=== PATIENT | male | born 1960 | race Caucasian/White ===

== ENCOUNTER → 2022-08-30 14:57 | Outpatient (BNVA) | payer OTHER, SELFPAY | PROVIDERS: PCP Internal Medicine; Visit Provider Hospitalist | DX: R06.02 Shortness of breath (principal); J38.3 Other diseases of vocal cords; R91.8 Other nonspecific abnormal finding of lung field; G47.33 Obstructive sleep apnea (adult) (pediatric); Z99.89 Dependence on other enabling machines and devices | CPT/HCPCS: 99202 ==

== ENCOUNTER 2022-09-12 08:58 | Outpatient (REF) | payer OTHER, SELFPAY ==
--- NOTE | 2022-09-12 12:00 | PFT_ITS ---
Forced vital capacity 77%, FEV1 71%, FEV1/FVC ratio is 69. FEF 25-75 56% and MVV 77%. Post bronchodilator therapy, there is a slight improvement in FEF 25-75. Total lung capacity 84% and residual volume 102%. Diffusion capacity 74%. CONCLUSION: There is evidence of mild degree of obstructive airway disorder and a minimal response to bronchodilator therapy. Clinical correlation is recommended. MD THOMAS Ewing/ORTEGA / [id number]
== END 2022-09-12 08:59 | disposition home or self-care (01) ==
LOC: HO.RESP 08:58
PROVIDERS: PCP Internal Medicine; Visit Provider Hospitalist
DX: R06.02 Shortness of breath (principal)
CPT/HCPCS: 94060; 94727; 94729

== ENCOUNTER → 2022-10-17 10:08 | Outpatient (BNVA) | payer OTHER, SELFPAY | PROVIDERS: PCP Internal Medicine; Visit Provider Hospitalist | DX: J44.9 Chronic obstructive pulmonary disease, unspecified (principal); J38.3 Other diseases of vocal cords; R91.8 Other nonspecific abnormal finding of lung field; R06.02 Shortness of breath; G47.33 Obstructive sleep apnea (adult) (pediatric); Z99.89 Dependence on other enabling machines and devices | CPT/HCPCS: 99212 ==

== ENCOUNTER → 2023-02-08 08:27 | Outpatient (BNVA) | payer MEDICARE, OTHER, SELFPAY | PROVIDERS: Visit Provider Hospitalist | DX: J44.9 Chronic obstructive pulmonary disease, unspecified (principal); R91.8 Other nonspecific abnormal finding of lung field; R06.02 Shortness of breath; J38.3 Other diseases of vocal cords; G47.33 Obstructive sleep apnea (adult) (pediatric); Z99.89 Dependence on other enabling machines and devices | CPT/HCPCS: 99212 ==

== ENCOUNTER 2023-07-17 08:46 | Outpatient (AMB) | payer MEDICARE, OTHER, SELFPAY ==
[2023-07-17 08:58] VITALS: BP 118/60; PULSE 77; O2SAT 96; BMI 22.5
--- NOTE | 2023-07-17 08:58 | MHC.OFFVIS ---
Intake Vital Signs 07/17/23 08:58 Height 6 ft 2 in Weight 175 lb BMI 22.5 BP 118/60 Blood Pressure Location Lt brachial Position Sitting Pulse 77 Pulse Source Pulse Oximeter Pulse Oximetry (%) 96 Oxygen Delivery Method Room Air Intake Visit Reasons: COPD Flue Blower Required: No Allergies moxifloxacin Allergy (Severe, Verified 07/17/23 09:00) Rash HPI HPI Comments History of Present Illness Details The patient is a 63-year-old gentleman with a known history of vocal cord dysfunction and asymmetry followed closely by ENT who apparently was having issues with shortness of breath back in 2018 where he underwent a soft tissue neck CT scan and also CT scan of the chest demonstrating multiple pulmonary nodules subcentimeter in nature largest 1 measuring about 4 mm in size. Subsequently after that in 2019 the patient started having worsening shortness of breath symptoms. This shortness of breath mainly when taking a deep breath in and will be intermittent in nature. He has never used inhalers. Because of the symptoms he had a full cardiac evaluation which was reassuring. More recently the patient was sleeping while using his CPAP and he woke up and could not breathe. Denies any chest pains. The symptoms were concerning enough for him to go to his primary care doctor to further discuss the issues. Therefore the patient was sent for repeat CT scan of the chest which was done at [facility]. I personally reviewed the CT scan of the chest that he had back in 2018 at [facility] demonstrating about 4 pulmonary nodules. The largest 1 4 mm in size. I did then compared to the report that we received from [facility] in appears that he has a new pulmonary nodule in the minor fissure on the right side. Therefore based on that the patient will need a repeat CT scan in June 2023. The pulmonary nodules appear to be noncalcified and appeared to be smooth borders well-circumscribed. No he stop subsolid component noted. In addition to that on the CT scan of the chest from 2019 the patient did have bilateral renal cysts. These renal cysts were not mention on the CT scan from [facility] although is difficult to know of that cuts were not low enough to tap sure that kidneys. If the patient has not had any imaging studies such as ultrasound to further address the renal cyst that should be completed. In the meantime the patient has been following closely with GI. Recently underwent a Wilson study. He has a small hiatal hernia. He is trying to maintain her reflux diet and also I encouraged him to try to sleep elevated as well. The speech therapist given similar recommendations. I do not believe that a short-acting beta agonist as warranted at this time. However, I did provide him with a peak flow meter so he can monitor closely his airway resistance. If the resistance goes down the patient should indeed consider a short-acting beta agonist. Will have him undergo pulmonary function studies as well. I also walking him to bring his CPAP in to the next visit to make sure that is adequately being treated his sleep apnea but not over treating when he is getting distention in the stomach and or irritating his larynx. 10/17/2022 the patient is here for a pulmonary follow-up visit. Since we last spoke he started developing a little laryngitis and then a productive cough. He was expectorating green phlegm although it is clearing up now. However, his cough has persisted. Feels some chest tightness in the middle the chest area. Moderate severity. He did undergo his pulmonary function studies prior to getting sick. We did review the results. It appears that he has a moderate degree of obstruction consistent moderate COPD. The patient is non smoker lifelong. Therefore is not clear why he has such as significant obstruction. He may have some untreated asthma. The patient has used rescue inhalers in the past. Although this point given Symbicort that he can use twice a day. He should rinse his mouth after using it. I am hopeful that with Symbicort his chest tightness has will improve and I am hopeful that with the budesonide component of the Symbicort she will start having improved event in his airways. He has some degree of small airways disease also consistent with likely uncontrolled asthma. He has had allergy testing in the past demonstrating minimal allergies to the environment but does not remember anything drastic. He also brought his CPAP with him. Currently set about CPAP of 6 without a ramp. AHI 0.9 which is excellent. He is using a nasal pillow mask and is working just fine. In regards of his pulmonary nodules his next CT scan will be for June 2023. He did have a CT scan at [facility] in he does have the CD although he does not have a with him. 02/08/2023 the patient is here for pulmonary follow-up visit. Since we last spoke the patient could not get the Symbicort so therefore he ended up getting Advair HFA. He did initially see any significant improvement with the medication. Also he also had an area in the mouth where he was unsure shows thrush. He also developed muscle spasms and cramps. He start the medication. After stopping he noticed that he was helping some. Although hard to know if his enough to warrant the use of the medication. He has been checking his peak flows. I did provide him with a spacer in order to minimize irritation to his mouth in case he needs to go back on the Advair. I also had a sample inhaler with levo albuterol that he could use as needed if he notices the onset of the chest tightness and shortness of breath. He will be checking his peak flows twice a day and also as needed. At nighttime he is using the CPAP. CPAP therapy continues to be affecting beneficial. He does use it for more than 4 hours a night. He is going to look to potentially switching his nasal pillows to a cradle. He will talk to a SMS regarding that. Finally. His last CT scan was back in June 2022 demonstrating a new nodule on the right hemithorax. The patient will get a repeat CT scan done June 2023 in 3. The patient prefers [facility]. 07/17/2023 the patient is here for pulmonary follow-up visit. The patient overall has been doing well. He has not had to use it Advair. A as a short-acting beta agonist study is not required either. Overall he is doing well from a respiratory status. He did have COVID when here COVID his peak flow did drop down to the highs 300. But, his typical peak flow is around 410-450. This is pretty consistent for him. The patient also has been using CPAP. His AHI continues to be below 5 which is reassuring. He does wear nasal pillows and he does have an air leak. He does try needs a chinstrap. I will request 1 from the [employer]. He does use occasional. Also we did follow-up with a CT scan of the chest that he had to follow-up is nodules. They have been stable now for about 4 years which is very reassuring. Upon evaluation in review of the images I did run into a small polypoid lesion on the esophagus. This is maybe a whole then had a CT scan itself. But he does have a GI doctor needs had a barium swallowing a pH probe I do believe that endoscopy may be helpful as well. Therefore I will send a copy to his GI doctor. Otherwise patient is doing well will follow-up in a year's time with pulmonary function studies. COUNTS INCLUDE 234 BEDS AT THE [facility] Medical History (Updated 07/17/23 @ 21:37 by Rubio Alexander MD) COPD (chronic obstructive pulmonary disease) FRANCISCO on CPAP Pulmonary nodules Vocal cord dysfunction Dyspnea Social History (Updated 08/30/22 @ 15:06 by Sydney Chou Olya) Patient Tobacco Use Status: Never used Tobacco Review of Systems Const Denies fatigue, Denies fever(s) and Denies night sweats Eyes Denies change in vision ENT Denies change in voice Card Denies chest pain and Denies dyspnea on exertion Resp Denies chest congestion, Reports cough, Denies dyspnea on exertion and Denies wheezing GI Reports dyspepsia Musc Reports no additional complaints Skin/Breast Denies rash Neuro Reports no additional complaints Endo Denies fatigue and Denies flushing Eloy/Lymph Denies easy bleeding and Denies easy bruising Aller/Immun Denies wheezing Physical Exam Vital Signs: Last Vital Signs Pulse 77 07/17/23 08:58 BP 118/60 07/17/23 08:58 Pulse Ox 96 07/17/23 08:58 Oxygen Delivery Method Room Air 07/17/23 08:58 BMI result Body Mass Index 22.5 Const General: comfortable HEENT Head: Yes normocephalic Eyes General: appearance normal, both eyes and all related structures Neck Neck: Yes supple Chest Chest palpation & inspection: normal inspection of the chest Resp Effort & Inspection: normal respiratory effort Auscultation: clear to auscultation bilaterally Cardio Rate: regular rate Rhythm: regular rhythm Heart sounds: S1 normal heart sound present and S2 normal heart sound present GI Auscultation: normal bowel sounds Skin General skin exam: no rashes or lesions noted Extrem General: Yes no clubbing, cyanosis or edema Results Reviewed Results Reviewed: Assessment & Plan Assessment & Plan (1) COPD (chronic obstructive pulmonary disease): Comment: Moderate obstruction based on PFTs Code(s): J44.9 - Chronic obstructive pulmonary disease, unspecified Qualifiers: COPD type: chronic bronchitis Chronic bronchitis type: simple Qualified Code(s): J41.0 - Simple chronic bronchitis (2) Dyspnea: Code(s): R06.00 - Dyspnea, unspecified Qualifiers: Dyspnea type: shortness of breath Qualified Code(s): R06.02 - Shortness of breath (3) Vocal cord dysfunction: Comment: asymmetrical vocal cords, speech therapy Code(s): J38.3 - Other diseases of vocal cords (4) Pulmonary nodules: Code(s): R91.8 - Other nonspecific abnormal finding of lung field (5) FRANCISCO on CPAP: Code(s): G47.33 - Obstructive sleep apnea (adult) (pediatric); Z99.89 - Dependence on other enabling machines and devices (6) Esophageal polyp: Code(s): K22.81 - Esophageal polyp Plan holding Advair HFA, will use 1 puff BID with spacer if needed EKRMIT as needed reflux diet HOB elevated while sleeping F/U with GI Re: small mid esophagus polypoid lesion monitor peak flows Repeat PFTs in 1 year continue PAP CPAP 6, AHI 0.9, needs chin strap F/U 1 year Orders: Orders PFT pulmonary function test 364 Days J41.0 - Simple chronic bronchitis Coding Level of Care Code Est Pt Level 4 (62745) Diagnoses Simple chronic bronchitis J41.0 COPD type: chronic bronchitis Chronic bronchitis type: simple Shortness of breath R06.02 Dyspnea type: shortness of breath Vocal cord dysfunction J38.3 Pulmonary nodules R91.8 FRANCISCO on CPAP G47.33; Z99.89 Esophageal polyp K22.81 Time Spent (min) 18
== END 2023-07-17 09:21 | disposition home or self-care (01) ==
PROVIDERS: PCP Internal Medicine; Visit Provider Hospitalist
DX: J41.0 Simple chronic bronchitis (principal); R06.02 Shortness of breath; J38.3 Other diseases of vocal cords; R91.8 Other nonspecific abnormal finding of lung field; G47.33 Obstructive sleep apnea (adult) (pediatric); Z99.89 Dependence on other enabling machines and devices; K22.81 Esophageal polyp
CPT/HCPCS: 99214

== ENCOUNTER → 2023-07-17 08:46 | Outpatient (BNVA) | payer MEDICARE, OTHER, SELFPAY | PROVIDERS: PCP Internal Medicine; Visit Provider Hospitalist | DX: J41.0 Simple chronic bronchitis (principal); R06.02 Shortness of breath; J38.3 Other diseases of vocal cords; R91.8 Other nonspecific abnormal finding of lung field; G47.33 Obstructive sleep apnea (adult) (pediatric); K22.81 Esophageal polyp; Z99.89 Dependence on other enabling machines and devices | CPT/HCPCS: 99212 ==

== ENCOUNTER 2024-07-22 10:07 | Outpatient (AMB) | payer MEDICARE, OTHER, SELFPAY ==
[2024-07-22 10:08] VITALS: BP 126/60; PULSE 87; O2SAT 97
--- NOTE | 2024-07-22 10:08 | A.OFFVIS_ITS ---
Vital Signs 07/22/24 10:08 Weight 186 lb BP 126/60 Blood Pressure Location Rt brachial Position Sitting Pulse 87 Pulse Source Pulse Oximeter Pulse Oximetry (%) 97 Oxygen Delivery Method Room Air Intake Visit Reasons: copd Allergies moxifloxacin Allergy (Severe, Verified 07/22/24 10:13) Rash Medication List - Last Reconciled 07/22/24 by Annette Thompson LPN CPAP (CPAP Machine/Device) As directed ubnnutfpnrc-hrsviadfh-hyxoeroe 200-62.5-25 mcg (Trelegy Ellipta) 1 inh inhalation DAILY 90 days sildenafil 100 mg PO DAILY HPI Comments Details: The patient is a 64-year-old gentleman with a known history of vocal cord dysfunction and asymmetry followed closely by ENT who apparently was having issues with shortness of breath back in 2018 where he underwent a soft tissue neck CT scan and also CT scan of the chest demonstrating multiple pulmonary nodules subcentimeter in nature largest 1 measuring about 4 mm in size. Subsequently after that in 2019 the patient started having worsening shortness of breath symptoms. This shortness of breath mainly when taking a deep breath in and will be intermittent in nature. He has never used inhalers. Because of the symptoms he had a full cardiac evaluation which was reassuring. More recently the patient was sleeping while using his CPAP and he woke up and could not breathe. Denies any chest pains. The symptoms were concerning enough for him to go to his primary care doctor to further discuss the issues. Therefore the patient was sent for repeat CT scan of the chest which was done at [facility]. I personally reviewed the CT scan of the chest that he had back in 2018 at [facility] demonstrating about 4 pulmonary nodules. The largest 1 4 mm in size. I did then compared to the report that we received from [facility] in appears that he has a new pulmonary nodule in the minor fissure on the right side. Therefore based on that the patient will need a repeat CT scan in June 2023. The pulmonary nodules appear to be noncalcified and appeared to be smooth borders well-circumscribed. No he stop subsolid component noted. In addition to that on the CT scan of the chest from 2019 the patient did have bilateral renal cysts. These renal cysts were not mention on the CT scan from [facility] although is difficult to know of that cuts were not low enough to tap sure that kidneys. If the patient has not had any imaging studies such as ultrasound to further address the renal cyst that should be completed. In the meantime the patient has been following closely with GI. Recently underwent a Wilson study. He has a small hiatal hernia. He is trying to maintain her reflux diet and also I encouraged him to try to sleep elevated as well. The speech therapist given similar recommendations. I do not believe that a short-acting beta agonist as warranted at this time. However, I did provide him with a peak flow meter so he can monitor closely his airway resistance. If the resistance goes down the patient should indeed consider a short-acting beta agonist. Will have him undergo pulmonary function studies as well. I also walking him to bring his CPAP in to the next visit to make sure that is adequately being treated his sleep apnea but not over treating when he is getting distention in the stomach and or irritating his larynx. 10/17/2022 the patient is here for a pulmonary follow-up visit. Since we last spoke he started developing a little laryngitis and then a productive cough. He was expectorating green phlegm although it is clearing up now. However, his cough has persisted. Feels some chest tightness in the middle the chest area. Moderate severity. He did undergo his pulmonary function studies prior to getting sick. We did review the results. It appears that he has a moderate degree of obstruction consistent moderate COPD. The patient is non smoker lifelong. Therefore is not clear why he has such as significant obstruction. He may have some untreated asthma. The patient has used rescue inhalers in the past. Although this point given Symbicort that he can use twice a day. He should rinse his mouth after using it. I am hopeful that with Symbicort his chest tightness has will improve and I am hopeful that with the budesonide component of the Symbicort she will start having improved event in his airways. He has some degree of small airways disease also consistent with likely uncontrolled asthma. He has had allergy testing in the past demonstrating minimal allergies to the environment but does not remember anything drastic. He also brought his CPAP with him. Currently set about CPAP of 6 without a ramp. AHI 0.9 which is excellent. He is using a nasal pillow mask and is working just fine. In regards of his pulmonary nodules his next CT scan will be for June 2023. He did have a CT scan at [facility] in he does have the CD although he does not have a with him. 02/08/2023 the patient is here for pulmonary follow-up visit. Since we last spoke the patient could not get the Symbicort so therefore he ended up getting Advair HFA. He did initially see any significant improvement with the medication. Also he also had an area in the mouth where he was unsure shows thrush. He also developed muscle spasms and cramps. He start the medication. After stopping he noticed that he was helping some. Although hard to know if his enough to warrant the use of the medication. He has been checking his peak flows. I did provide him with a spacer in order to minimize irritation to his mouth in case he needs to go back on the Advair. I also had a sample inhaler with levo albuterol that he could use as needed if he notices the onset of the chest tightness and shortness of breath. He will be checking his peak flows twice a day and also as needed. At nighttime he is using the CPAP. CPAP therapy continues to be affecting beneficial. He does use it for more than 4 hours a night. He is going to look to potentially switching his nasal pillows to a cradle. He will talk to a SMS regarding that. Finally. His last CT scan was back in June 2022 demonstrating a new nodule on the right hemithorax. The patient will get a repeat CT scan done June 2023 in 3. The patient prefers [facility]. 07/17/2023 the patient is here for pulmonary follow-up visit. The patient overall has been doing well. He has not had to use it Advair. A as a short- acting beta agonist study is not required either. Overall he is doing well from a respiratory status. He did have COVID when here COVID his peak flow did drop down to the highs 300. But, his typical peak flow is around 410-450. This is pretty consistent for him. The patient also has been using CPAP. His AHI continues to be below 5 which is reassuring. He does wear nasal pillows and he does have an air leak. He does try needs a chinstrap. I will request 1 from the [employer]. He does use occasional. Also we did follow-up with a CT scan of the chest that he had to follow-up is nodules. They have been stable now for about 4 years which is very reassuring. Upon evaluation in review of the images I did run into a small polypoid lesion on the esophagus. This is maybe a whole then had a CT scan itself. But he does have a GI doctor needs had a barium swallowing a pH probe I do believe that endoscopy may be helpful as well. Therefore I will send a copy to his GI doctor. Otherwise patient is doing well will follow-up in a year's time with pulmonary function studies. 07/22/2024 the patient is here for a pulmonary follow-up visit. The patient overall has been doing well. The Trelegy inhaler has been affecting beneficial. He rarely has to use his rescue inhaler. Although he has 1 available in does use it less than 2 times a week. The patient did have pulmonary function studies at [facility] which I did review and compared to his previous. Appears to show improvement as he only has a mild obstruction at this time consistent with mild COPD. Prior to that he had a moderate obstruction. The patient also went to [place] to be seen by notices because of some other incidental findings. In the process he found out that his daughters carry the alpha-1 antitrypsin gene mutation. Therefore, will go ahead and request a DNIA testing for himself as he may be the carry and also alpha-1 levels to make sure that he is getting adequate protein production. The patient also has been using the CPAP. He does use a nasal mask and is resulting in a dry mouth. The chinstrap was helping for some period time but then it became loose and then in no longer works. I did suggest he switch over to a fullface mask such as the F 40. And I will send a script to the pharmacy. If this is not effective he can always call and we can go back to the nasal mask. He continues to get supplies from his [employer] company, [employer]. His machine got a back in 2019 and is still working well. [facility] Medical History (Updated 07/22/24 @ 21:21 by Rubio Alexander MD) COPD (chronic obstructive pulmonary disease) FRANCISCO on CPAP Pulmonary nodules Vocal cord dysfunction Dyspnea Social History (Updated 08/30/22 @ 15:06 by GRETCHEN Gomez) Patient Tobacco Use Status: Never used Tobacco Review of Systems Const Denies fatigue, Denies fever(s) and Denies night sweats Eyes Denies change in vision ENT Reports change in voice Card Denies chest pain and Denies dyspnea on exertion Resp Denies chest congestion, Reports cough, Denies dyspnea on exertion and Reports wheezing GI Reports dyspepsia Musc Reports no additional complaints Skin/Breast Denies rash Neuro Reports no additional complaints Endo Denies fatigue and Denies flushing Eloy/Lymph Denies easy bleeding and Denies easy bruising Aller/Immun Reports wheezing Physical Exam Vital Signs: Last Vital Signs Pulse 87 07/22/24 10:08 BP 126/60 07/22/24 10:08 Pulse Ox 97 07/22/24 10:08 Oxygen Delivery Method Room Air 07/22/24 10:08 Const General: comfortable HEENT Head: Yes normocephalic Eyes General: appearance normal, both eyes and all related structures Neck Neck: Yes supple Chest Chest palpation & inspection: normal inspection of the chest Resp Effort & Inspection: normal respiratory effort Auscultation: clear to auscultation bilaterally Cardio Rate: regular rate Rhythm: regular rhythm Heart sounds: S1 normal heart sound present and S2 normal heart sound present GI Auscultation: normal bowel sounds Skin General skin exam: no rashes or lesions noted Extrem General: Yes no clubbing, cyanosis or edema Assessment & Plan Assessment & Plan (1) COPD (chronic obstructive pulmonary disease): Comment: Moderate-->mild obstruction based on PFTs Code(s): J44.9 - Chronic obstructive pulmonary disease, unspecified Category: Medical Qualifiers: COPD type: chronic bronchitis Chronic bronchitis type: simple Qualified Code(s): J41.0 - Simple chronic bronchitis (2) Dyspnea: Code(s): R06.00 - Dyspnea, unspecified Category: Medical Qualifiers: Dyspnea type: shortness of breath Qualified Code(s): R06.02 - Shortness of breath (3) Vocal cord dysfunction: Comment: asymmetrical vocal cords, speech therapy Code(s): J38.3 - Other diseases of vocal cords Category: Medical (4) Pulmonary nodules: Code(s): R91.8 - Other nonspecific abnormal finding of lung field Category: Medical (5) FRANCISCO on CPAP: Code(s): G47.33 - Obstructive sleep apnea (adult) (pediatric); Z99.89 - Dependence on other enabling machines and devices Category: Medical (6) Esophageal polyp: Code(s): K22.81 - Esophageal polyp Category: Medical Plan Trelegy KERMIT as needed reflux diet HOB elevated while sleeping monitor peak flows Repeat PFTs in 1 year continue PAP CPAP 6, AHI 0.9, requesting F40 mask bloodwork alpha 1 DNA swab F/U 1 year Orders: Orders Liver Panel Today J41.0 - Simple chronic bronchitis Complete Blood Count Auto Diff Today J41.0 - Simple chronic bronchitis Erythrocyte Sedimentation Rate Today J41.0 - Simple chronic bronchitis Alpha 1 Anti-trypsin Today J41.0 - Simple chronic bronchitis Basic Metabolic Panel Today J41.0 - Simple chronic bronchitis Coding Level of Care Code Est Pt Level 4 (12824) Diagnoses Simple chronic bronchitis J41.0 COPD type: chronic bronchitis Chronic bronchitis type: simple Shortness of breath R06.02 Dyspnea type: shortness of breath Vocal cord dysfunction J38.3 Pulmonary nodules R91.8 FRANCISCO on CPAP G47.33; Z99.89 Esophageal polyp K22.81 Time Spent (min) 17
--- OUTSIDE RECORDS SUMMARY | 2024-07-22 10:10 | XMS_ITS | Data Portability ---
Author Organization [facility], [facility] Address [address] [place] [address] Care Team Providers Care Utility Inspector Name Role Phone ALHAJI MENDOZA Referring Provider [phone] ALHAJI MENDOZA Primary Care Provider [phone] Assessment Encounter Date Assessment Date Assessment LastModified by Organization Details LastModified Time 03/19/2024 03/19/2024 Assessment: Pt presents with signs and symptoms consistent w/ R lateral epicondylitis. 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 [email or web address] Not available 03/20/2024 20:21:30 03/25/2024 03/25/2024 A: Good josé miguel to exs with most difficulty with pron/sup. Fatigue and soreness at end of session. P: Cont POC. Not available 03/25/2024 09:11:47 04/01/2024 04/01/2024 A: Good josé miguel to strengthening progressions with mild discomfort at wrist extensor belly/origin region. P: Cont POC. Not available 04/02/2024 10:21:42 04/15/2024 04/15/2024 A: Pt able to do all exercise with minimal issue. Pt noted some discomfort with green therabar extensions and flexions so it was bumped down to red without issue. P: Cont POC. [email or web address] Not available 04/15/2024 10:20:48 Plan of Treatment Reminders Order Date Submit Date Provider Last Modified By Organization Details Last Modified Time Details Appointments None record ed. Lab None record ed. Referral None record ed. Procedures None record ed. Surgeries None record ed. Imaging None record ed. Medication Orders None record ed. Patient Targets Encounter Date Encounter Id Patient Goals Patient Target Last Modified By Organization Details Last Modified Time 03/19/2024 [id number] 3 weeks of Right Elbow Strength -[id number] Not available Not available Not available 3 weeks of Right Elbow Strength -[id number] Not available Not available Not available retirement goal of Right Elbow Strength -[id number] Not available Not available Not available retirement goal of Right Elbow Strength -[id number] Not available Not available Not available 3 weeks of Sleeping -[id number] Not available Not available Not available 3 weeks of Reaching NOTE Not available Not available Not available retirement goal of Reaching -[id number] Not available Not available Not available meterman goal of Carrying -[id number] Not available Not available Not available Patient InstructionsNo instructions recorded. Reason for Referral None Reported. Results Created Date Observation Date Name Description Value Unit Range Abnormal Flag Note LastModifiedBy Organization Detail LastModifiedTime 03/13/20 24 03/13/2024 XR, elbow , 2 view http:/ [email or web address] ?Encry pted=s hAaTro YD8dLq bEUv6g %2BXZw aYqtaq 0bqfl% 2Fg9IQ a4ajBk vP9nXo QUaueC m3YtLR FvZlgJ [facility] 0k2013 AC0Kob H2BUaH eUC8mr 84%3D INTERFACE [facility] [address], [place], [address], 03/13/2024 09:00:47 03/13/20 24 03/13/2024 XR, elbow , 2 view http:/ [email or web address] ?Encry pted=s hAaTro YD8dLq bEUv6g %2BXZw aYqtaq 0bqfl% 2Fg9IQ a4ajBk vP9nXo QUaueC m3YtLR FvZlgJ JJ8mAn HZtai3 9s2275 AC0Kob H2BUaH eUC8mr 84%3D INTERFACE [facility] [address], [place], [address], 03/13/2024 09:00:49 Result Notes None recorded. Procedures Surgical History Date Name Laterality Status Provider Name and Address Organization Details Recorded Time 4 65761 Therapeutic Exercise (1:1) completed JESSICA ROET [address], [place], [address], [facility] 04/15/2024 10:18:23 4 86395 Therapeutic Exercise (1:1) completed Phuong Orellana PTA [address], [place], [address], [facility] 04/02/2024 10:20:44 4 69169 Therapeutic Exercise (1:1) completed Phuong Orellana PTA [address], [place], [address], [facility] 03/25/2024 09:11:06 4 59995: Manual therapy completed Phuong Orellana PTA [address], [place], [address], [facility] 03/25/2024 09:11:04 4 08334 Therapeutic Exercise (1:1) completed CHRISTINA BAUM DPT [address], [place], [address], [facility] 03/20/2024 20:18:25 4 29858: Low complexity PT Eval completed CHRISTINA BAUM DPT [address], [place], [address], [facility] 03/20/2024 20:18:27 4 G8419 BMI Outside Normal Parameters, F/U not Documented completed CHRISTINA BAUM DPT [address], [place], [address], [facility] 03/20/2024 20:22:07 4 G8427 Current Medication Documented completed CHRISTINA BAUM DPT [address], [place], [address], [facility] 03/20/2024 20:22:24 Imaging Results Imaging Date Name Status LastModified by Organiz ation Details LastModified Time 03/13/2024 XR, elbow, 2 view completed INTERFACE [facility] [address], [place], [address], 03/13/2024 09:00:47 03/13/2024 XR, elbow, 2 view completed INTERFACE [facility] [address], [place], [address], 03/13/2024 09:00:49 Procedure Notes None recorded. Medical Equipment None Reported. Allergies Allergen ID Allergen Name Allergen Category Reaction Reaction Severity Criticality Documentation Date Start Date Code Code System Note Provider Name and Address Organization Details Recorded Time 470410 moxifloxa nimisha medicatio n Not available Not available Not available 03/13/2024 41446 2 RxNorm SALEEM lazo [facility] 09:15:52 Medications Name Sig Start Date Stop Date Status Note LastModified by Organization Details LastModified Time benzonatate 200 mg capsule TAKE 1 CAPSULE BY MOUTH 3 TIMES A DAY,X14 DAYS NEEDED FOR COUGH active Not Available Not Available No t Available prednisone 20 mg tablet TAKE 2 TABLETS BY MOUTH DAILY WITH FOOD OR MILK FOR 5 DAYS active Not Available Not Available No t Available sildenafil 100 mg tablet active Not Available Not Available No t Available methylpredniso lone 4 mg tablets in a dose pack TAKE 6 TABLETS ON DAY 1 DIRECTED ON PACKAGE AND DECREASE BY 1 TAB EACH DAY FOR A TOTAL OF 6 DAYS active Not Available Not Available No t Available albuterol sulfate HFA 90 mcg/actuation aerosol inhaler INHALE 2 PUFFS 4 TIMES A DAY NEEDED FOR WHEEZING active Not Available Not Available No t Available fluticasone propionate 50 mcg/actuation nasal spray,suspensi on USE 1 SPRAY IN EACH NOSTRIL TWICE A DAY active Not Available Not Available No t Available amoxicillin 875 mg-potassium clavulanate 125 mg tablet TAKE 1 TABLET BY MOUTH EVERY 12 HOURS FOR 10 DAYS active Not Available Not Available No t Available Trelegy Ellipta 200 mcg-62.5 mcg-25 mcg powder for inhalation TAKE 1 PUFF BY MOUTH EVERY DAY active Not Available Not Available No t Available Paxlovid 300 mg (150 mg x 2)-100 mg tablets in a dose pack TAKE 3 TABLETS BY MOUTH TWICE A DAY DIRECTED FOR 5 DAYS active Not Available Not Available No t Available Vitals Date Recorded Body height Body mass index (BMI) Body weight Provider Name and Address Organization Details Last Updated DateTime 04/24/2024 187.96 cm 23.1 kg/m2 76700.63 g SALEEM CHOUDHARY [place] - [place] [facility] 04/24/2024 08:27:03 Social History None recorded. Functional Status None recorded. Mental Status None recorded. Family History Nothing Reported. Medical History No medical history recorded. Past Encounters Encounter ID Performer Location Encounter Start Date Encounter Closed Date Diagnosis/Indication Diagnosis SNOMED-CT Code Diagnosis ICD10 Code [id number] Cecil Canseco MD [facility] [address]st Floor [address] [facility] [place] [address] 03/13/2024 08:40:34 04/09/2024 20:06:00 Pain of right elbow joint 3390040423 8120217 M25.521 Lateral epicondylitis 20 5728506 M77.11 [id number] MD [facility] [address] [place] [address] 03/19/2024 12:21:17 03/19/2024 13:32:30 Lateral epicondylitis of right humerus 3508327698 67057 M77.11 [id number] [facility] [address] [place] [address] 03/25/2024 08:25:37 03/25/2024 09:29:34 Lateral epicondylitis of right humerus 3400105983 17065 M77.11 [id number] [facility] [address] [place] [address] 04/01/2024 15:26:11 04/01/2024 16:08:30 Lateral epicondylitis of right humerus 5419953302 11335 M77.11 [id number] [facility] [address] [place] [address] 04/15/2024 08:55:51 04/15/2024 10:00:15 Lateral epicondylitis of right humerus 9666933672 45663 M77.11 [id number] MD Jagdish Mckinley [address] [place] [address] 04/24/2024 08:22:35 05/15/2024 11:58:05 Lateral epicondylitis of right humerus 1788138846 06674 M77.11 Health Concerns Section Related Observation LastModified by Organization Detai ls LastModified Time None Recorded Concern Status LastModified by Organization Details LastModified Time None Recorded Advance Directives Directive None Recorded Payers Encounter Date Sequence Insurance Name Policy Number Policy Finney Covered Member ID Finney Member ID Guarantor Name 03/19/2024 2 WPS - FOR LIFE (MEDICARE SUPPLEMENT) Alec Veit [id number] Alec Veit 03/19/2024 1 MEDICARE B-PR: [facility] Alec Kenton Veit [id number] Alec Veit 03/25/2024 2 WPS - FOR LIFE (MEDICARE SUPPLEMENT) Alec Veit [id number] Alec Veit 03/25/2024 1 MEDICARE B-PR: [employer] Alec Kenton Veit [id number] Alec Veit 04/01/2024 2 WPS - FOR LIFE (MEDICARE SUPPLEMENT) Alec Veit [id number] Alec Veit 04/01/2024 1 MEDICARE B-PR: [facility] [employer] Alec Kenton Veit [id number] Alec Veit 04/15/2024 2 WPS - FOR LIFE (MEDICARE SUPPLEMENT) Alec Veit [id number] Alec Veit 04/15/2024 1 MEDIC[facility] B-[facility]: [facility] [employer] Alec Kenton Veit [id number] Alec Veit 04/24/2024 2 WPS - FOR LIFE (MEDICARE SUPPLEMENT) Alec Veit [id number] Alec Veit 04/24/2024 1 MEDICARE B-PR: [facility] [employer] Alec Fung Veit [id number] Alec Veit Notes Date Note Type Note Provider Name and Address Organization Details Recorded Time 03/19/2024 text/html Pt is a 64 y/o m darwin presenting to PT w/ R lateral epicondylitis. Pt notes that he was doing yard work in December where he did a lot of shoveling. Pt notes that he started to notice pain the following day and that it has not gotten any better since. 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 Pt notes that the pain is a sharp 4-5/10 pain. CHRISTINA BAUM, DPT [address], [place], [address], [facility] 03/20/2024 20:23:04 03/25/2024 text/html Pt states he is now having shoulder and wrist pain- pre-existing, but recently flared up. Phuong Orellana, CORPORATE COUNSELOR [address], [place], [address], [facility] 03/25/2024 12:38:34 04/01/2024 text/html Pt states he now has on/off pain in the elbow, but with improvement since starting PT. Phuong Orellana, CORPORATE COUNSELOR [address], [place], [address], [facility] 04/02/2024 10:22:07 04/15/2024 text/html Pt reports that he is doing okay today. Pt says that he does have some discomfort at a 3-4/10 when reaching for his grandchild or trying to pick something up quickly. Pt notes that things like lifting a coffee cup or close to the body does not cause pain anymore. CHRISTINA BAUM, JESSICAT [address], [place], [address], [facility] 04/15/2024 10:20:58 04/24/2024 text/html Diagnosis: Right lateral epicondylitisThe patient reports that he has seen improvement in his pain. He is working on a home program now.Past family, medical, social history and review of systems has been reviewed, updated and is located in the patient? s chart.Examination: Healthy appearing patient in no apparent distress. Alert and oriented. He has symmetric range of motion of his bilateral elbows, forearms, wrists and digits. Provocative testing of both elbows reveals no instability. He is tender to palpation over his right lateral epicondyle. He has painless region with resisted wrist extension with the elbow extended. No atrophy in either upper extremity. Brisk capillary refill in all digitsPlan: The patient and I discussed his situation at length. We have agreed that he is not a candidate for corticosteroid injection therapy today. He will continue to work on his program and follow up with me at his discretion. Cecil Canseco MD [address] [place] [address] [address], [place], [address], [facility] - [place] [facility] 04/24/2024 08:40:44
--- OUTSIDE RECORDS SUMMARY | 2024-07-22 10:10 | XMS_ITS | Continuity of Care Document ---
Author Organization [facility] Address [address] [place] [address] Care Team Providers Care Sugar Controller Name Role Phone ALHAJI MENDOZA Referring Provider [phone] ALHAJI MENDOZA Primary Care Provider Assessment No assessment recorded. Plan of Treatment Reminders Order Date Submit Date Provider Last Modified By Organization Details Last Modified Time Details Appointments None record ed. Lab None record ed. Referral None record ed. Procedures None record ed. Surgeries None record ed. Imaging None record ed. Medication Orders None record ed. Patient TargetsNo targets recorded. Patient InstructionsNo instructions recorded. Reason for Referral None Reported. Procedures Surgical History Date Name Laterality Status Provider Name and Address Organization Details Recorded Time 4 15450 Therapeutic Exercise (1:1) completed CHRISTINA BAUM DPT [address] [facility], [place], [address], [facility] 04/15/2024 10:18:23 4 06383 Therapeutic Exercise (1:1) completed Phuong Orellana PTA [address], [place], [address], [facility] 04/02/2024 10:20:44 4 56393 Therapeutic Exercise (1:1) completed Phuong Orellana PTA [address], [place], [address], [facility] 03/25/2024 09:11:06 4 88472: Manual therapy completed Phuong Orellana PTA [address], [place], [address], [facility] 03/25/2024 09:11:04 4 68885 Therapeutic Exercise (1:1) completed CHRISTINA BAUM DPT [address], [place], [address], [facility] 03/20/2024 20:18:25 4 48590: Low complexity PT Eval completed CHRISTINA BAUM DPT [address], [place], [address], [facility] 03/20/2024 20:18:27 4 G8419 BMI Outside Normal Parameters, F/U not Documented completed CHRISTINA BAUM DPT [address], [place], [address], [facility] 03/20/2024 20:22:07 4 G8427 Current Medication Documented completed CHRISTINA BAUM DPT [address], [place], [address], [facility] 03/20/2024 20:22:24 Imaging Results None recorded. Procedure Notes None recorded. Medical Equipment None Reported. Allergies Allergen ID Allergen Name Allergen Category Reaction Reaction Severity Criticality Documentation Date Start Date Code Code System Note Provider Name and Address Organization Details Recorded Time 074428 moxifloxa nimisha medicatio n Not available Not available Not available 03/13/2024 64896 2 RxNorm SALEEM lazo, [facility] 4 09:15:52 Medications Name Sig Start Date Stop [...] Updated DateTime 04/24/2024 187.96 cm 23.1 kg/m2 66087.63 g [place]ALEEM CHOUDHARY [place] - [place] [facility] 04/24/2024 08:27:03 Social History None recorded. Functional Status None recorded. Mental Status None recorded. Family History Nothing Reported. Medical History No medical history recorded. Past Encounters Encounter ID Performer Location Encounter Start Date Encounter Closed Date Diagnosis/Indication Diagnosis SNOMED-CT Code Diagnosis ICD10 Code [id number] [facility] [address] [place] [address] 03/25/2024 08:25:37 03/25/2024 09:29:34 Lateral epicondylitis of right humerus 4126653430 81900 M77.11 [id number] [facility] [address] [place] [address] 04/01/2024 15:26:11 04/01/2024 16:08:30 Lateral epicondylitis of right humerus 1313247670 73511 M77.11 [id number] [facility] [address] [place] [address] 04/15/2024 08:55:51 04/15/2024 10:00:15 Lateral epicondylitis of right humerus 3275004225 77953 M77.11 [id number] MD Maria A M[facility] 1[address] [place] [address] 04/24/2024 08:22:35 05/15/2024 11:58:05 Lateral epicondylitis of right humerus 9708901811 34953 M77.11 Health Concerns Section Related Observation LastModified by Organization Detai ls LastModified Time None Recorded Concern Status LastModified by Organization Details LastModified Time None Recorded Payers Encounter Date Sequence Insurance Name Policy Number Policy Finney Covered Member ID Finney Member ID Guarantor Name 04/24/2024 2 WPS - FOR LIFE (MEDICARE SUPPLEMENT) Alec Cain [id number] Alec Preciadomoy 04/24/2024 1 [place]: [employer] Alec Cain [id number] Alec Cain Notes Date Note Type Note Provider Name and Address Organization Details Recorded Time 04/24/2024 text/html Diagnosis: Right lateral epicondylitisThe patient [...] me at his discretion. Cecil Canseco MD [address], [place], [address], [facility] - [place] [facility] 04/24/2024 08:40:44
--- OUTSIDE RECORDS SUMMARY | 2024-07-22 10:11 | XMS_ITS | Data Portability ---
Author Organization [place] [facility] Kassandra Palma A[facility] [place] Address [address] [place] [address] Care Team Providers Care Coal Miner Name Role Phone ALHAJI MENDOZA Primary Care Provider ALHAJI MENDOZA Referring Provider [phone] Assessment Encounter Date Assessment Date Assessment LastModified by Organization Details LastModified Time 12/05/2023 12/05/2023 HPI : Patient is here today with complaints of bilateral knee pain. ? ? The patient is experiencing bilateral knee pain, which is moderate in intensity, and has recently worsened. The left knee is the worse knee. The pain limits some activities of daily living. Walking tolerance is reduced. Pain and restriction of function are moderate at this time. He has not done any recent treatments for it. He does have a history of a right knee partial meniscectomy in 2001. Review of systems is negative for other rapidly progressive neurological disorder, chest pain, shortness of breath, fevers, chills, or any signs of active or persistent local or systemic infection. Physical Exam ??: Patient is well nourished, well-developed, in no acute distress, with appropriate mood and affect. The patient is oriented to time, place, and person. Bilateral knee motion is reduced and does cause significant pain. The right knee moves from 0-130 degrees and the left knee moves from 0-130 degrees. The knees are stable within those [id number] n. The alignment of the right knee is neutral. The alignment of the left knee is neutral. Knee muscle strength is normal bilaterally with the skin intact. Pedal pulses are palpable. Hip examination, including flexion and internal rotation, was negative in that groin pain was not produced. Assessment/Plan ??: The patient has bilateral knee arthritis. An extensive discussion was conducted on the natural history of the disease and the variety of surgical and non-surgical options available to the patient including, but not limited to non-steroidal anti-inflammato ry medications, steroid injections, viscosupplement ation, physical therapy, maintenance of ideal body weight, and reduction of activity. We are going to start with a bilateral knee conditioning program. He is going to follow-up in 6 months with reevaluation at that time. Not available 12/05/2023 16:09:10 Plan of Treatment Reminders Order Date Submit Date Provider Last Modified By Organization Details Last Modified Time Details Appointments None record ed. Lab None record ed. Referral None record ed. Procedures None record ed. Surgeries None record ed. Imaging XR, knee, 1 or 2 view 024 12/05/19 24 [email or web address] [facility], [address], [place], [address], 4 07:01:57 XR, knee, 1 or 2 view 024 12/05/19 24 [email or web address] [facility], [address], [place], [address], 4 07:01:57 Medication Orders None record ed. Patient TargetsNo targets recorded. Patient Instructions Encounter Date Encounter Id Patient Instructions Last Modified By Organization Details Last Modified Time 12/05/2023 [id number] AP, lateral, Valdes, and patellar view radiographs of the right knee taken today demonstrate right knee degenerative joint disease with joint space narrowing, osteophyte formation, and subchondral sclerosis. There is [id number] articulation in the medial compartment. AP, lateral, Valdes, and patellar view radiographs of the left knee taken today demonstrate left knee degenerative joint disease with joint space narrowing, osteophyte formation, and subchondral sclerosis. Not available 12/05/2023 16:09:22 Reason for Referral None Reported. Problems Name Problem SNOMED Code Status Onset Date Resolution Date Notes Provider Name and Address Organization Details Recorded Time Osteoarthri tis of left knee joint 7502455649950 09 Active 2023 James Mares MD [address], [place], [address], [facility], P 4 16:07:43 Problem Notes None recorded. Procedures Surgical History Date Name Laterality Status Provider Name and Address Organization Details Recorded Time excision of ganglion cyst completed [facility], [facility] 12/08/2023 09:38:26 repair of meniscus completed [facility], [facility] 12/08/2023 09:38:52 Imaging Results None recorded. Procedure Notes None recorded. Medical Equipment None Reported. Allergies Allergen ID Allergen Name Allergen Category Reaction Reaction Severity Criticality Documentation Date Start Date Code Code System Note Provider Name and Address Organization Details Recorded Time 87206 moxifloxa nimisha medicatio n Not available Not available Not available 12/05/2023 04039 2 RxNorm Ages [facility], [facility], [facility] 4 15:53:24 Medications Name Sig Start Date Stop Date Status Note LastModified by Organization Details LastModified Time clotrimazole [address] ROSA IN MOUTH 5 TIMES A DAY HOLD IN MOUTH 15-20 MINUTES active Not Available Not Available No t Available doxycycline monohydrate 100 mg tablet TAKE 1 TABLET BY MOUTH TWICE A DAY active Not Available Not Available No t Available sildenafil 100 mg tablet TAKE 1 TABLET BY MOUTH EVERY DAY NEEDED active Not Available Not Available No t Available amoxicillin 500 mg tablet TAKE 1 TABLET BY MOUTH EVERY 12 HOURS FOR 10 DAYS active Not Available Not Available Not Available codeine 10 mg-guaifenes in 100 mg/5 mL oral liquid GIVE 5-10 ML BY MOUTH EVERY 6 HOURS NEEDED active Not Available Not Available No t Available methylpredni solone 4 mg tablets in a dose pack TAKE 6 TABLETS ON DAY 1 DIRECTED ON PACKAGE AND DECREASE BY 1 TAB EACH DAY FOR A TOTAL OF 6 DAYS active Not Available Not Available No t Available amoxicillin 875 mg-potassium clavulanate 125 mg tablet TAKE 1 TABLET BY MOUTH EVERY 12 HOURS FOR 10 DAYS active Not Available Not Available Not Available multivitamin active Not Available Not Available Not Available Plenvu 140 gram-9 gram-5.2 gram powder packs USE 3 PACKETS DISSOLVED IN WATER DIRECTED FOLLOW INSTRUCTION S GIVEN TO YOU BY OFFICE active Not Available Not Available No t Available Paxlovid 300 mg (150 mg x 2)-100 mg tablets in a dose pack TAKE 3 TABLETS BY MOUTH TWICE A DAY DIRECTED FOR 5 DAYS active Not Available Not Available N ot Available Vitals Date Recorded Body height Body mass index (BMI) Body weight Provider Name and Address Organization Details Last Updated DateTime 12/05/2023 187.96 cm 24.1 kg/m2 25099.[address] [place] [facility] 12/05/2023 15:53:35 Social History Question Answer Notes LastModified by Organizat ion Details LastModified Time Tobacco Smoking Status Never Smoker Marii Oliveira null, [place] [facility] 12/08/2023 09:37:51 What Is Your Level Of Alcohol Consumption? Occasional Information not available 12/08/2023 Do You Use Any Illicit Or Recreational Drugs? No Information not available 12/08/2023 Sex: Unknown Functional Status None recorded. Mental Status None recorded. Family History Relationship Description Onset Age of this Age Resolved Age Notes LastModified by Organization Details LastModified Time Father Family history of malignant neoplasm [email or web address] Not available 2023 09:39:20 Father Essential hypertension [email or web address] Not available 10/2023 09:39:46 Medical History Condition Response COPD Y Past Encounters Encounter ID Performer Location Encounter Start Date Encounter Closed Date Diagnosis/Indication Diagnosis SNOMED-CT Code Diagnosis ICD10 Code [id number] James Mares MD [address] [address] 12/05/2023 15:32:43 12/05/2023 16:09:16 Pain of right knee joint 2584126419 12382 M25.561 Pain of le ft knee joint 9208226050 73159 M25.562 Osteoarthr itis of left knee joint 3957621967 12302 M17.12 Health Concerns Section Related Observation LastModified by Organization Detai ls LastModified Time None Recorded Concern Status LastModified by Organization Details LastModified Time None Recorded Advance Directives Directive None Recorded Payers Encounter Date Sequence Insurance Name Policy Number Policy Finney Covered Member ID Finney Member ID Guarantor Name 12/05/2023 1 MEDICARE B-[place]: NGS Alec Cain [id number] Alec Cain 12/05/2023 2 WPS - FOR LIFE (MEDICARE SUPPLEMENT) Alec Cain [id number] Alec Cain
--- OUTSIDE RECORDS SUMMARY | 2024-07-22 10:11 | XMS_ITS ---
Author Name [facility] Organization Unknown History of Medication Use Medication Directions Dispensed Refills Start Date End Date Stat us amoxicillin 500 mg tablet TAKE 1 TABLET BY MOUTH EVERY 12 HOURS FOR 10 DAYS 12/07/2023 active doxycycline monohydrate 100 mg tablet TAKE 1 TABLET BY MOUTH TWICE A DAY 12/07/2023 active Plenvu 140 gram-9 gram-5.2 gram powder packs USE 3 PACKETS DISSOLVED IN WATER DIRECTED FOLLOW INSTRUCTIONS GIVEN TO YOU BY OFFICE 12/07/2023 active codeine 10 mg-guaifenesin 100 mg/5 mL oral liquid GIVE 5-10 ML BY MOUTH EVERY 6 HOURS NEEDED 12/07/2023 active amoxicillin 875 mg-potassium clavulanate 125 mg tablet TAKE 1 TABLET BY MOUTH EVERY 12 HOURS FOR 10 DAYS 12/07/2023 active clotrimazole [address] MERCEDES IN MOUTH 5 TIMES A DAY HOLD IN MOUTH 15-20 MINUTES 12/07/2023 active sildenafil 100 mg tablet TAKE 1 TABLET BY MOUTH EVERY DAY NEEDED 12/07/2023 active Allergies Allergen Reaction Severity Comment Documented Date Source Statu s MOXIFLOXACIN ENS_AONECT Problems Problem Status Onset Date Problem Type Date of Resoluti on Source Osteoarthritis of left knee joint active 2023-12-05 ProblemAct ENS_AONECT
--- OUTSIDE RECORDS SUMMARY | 2024-07-22 10:11 | XMS_ITS | Continuity of Care Document ---
Author Organization [facility] [address] [place] [address] Phone [phone] Care Team Providers Care Glaze Mixer Name Role Phone Oren Estrella M.D. Care Team Information Recei salo [phone] Problems Active Problems Provider Date Pituitary adenoma Andrew Ricketts M.D. Onset: 09/13/2022 Social History Type Date Description Comments Sex Unknown Lives With Spouse ETOH Use Occasionally consumes alcoho l Tobacco Use Start: Unknown Patient has never smoked Allergies and adverse reactions Active Allergies Criticality Reaction Severity Comments Date Moxifloxacin Unable to assess criticality Hives 09/13/2022 Medications Active Medications SIG Qnty Indications Ordering Provider Date Sildenafil [id number] Tablets Oren Estrella M.D. Vital Signs Date Vital Result Comment 09/13/2022 1:47pm BP Systolic 120 mmHg BP Diastolic 68 mmHg Heart Rate 72 /min Height 74 inches 6'2 Weight 183.00 lb BMI (Body Mass Index) 23.5 kg/m2 Medical Devices Description No Information Available Encounters Type Date Location Provider Dx Diagnosis Office Visit 09/13/2022 1:45p Main Office Andrew Ricketts M.D. D35.2 Benign neoplasm of pituitary gland E04.1 Nontoxic single thyr oid nodule Assessments Date Code Description Provider 09/13/2022 D35.2 Pituitary adenoma Andrew Camarillo M.D. 09/13/2022 E04.1 Thyroid nodule Andrew ag M.D. Plan of Treatment No Information Available Functional Status Description No Information Available Mental Status Description No Information Available Referrals Refer to Dr Reason for Referral Status Appt Temo e Andrew Ricketts M.D. Created [address] [place] [address] [phone]
== END 2024-07-22 10:48 | disposition home or self-care (01) ==
PROVIDERS: PCP Internal Medicine; Visit Provider Hospitalist
DX: J41.0 Simple chronic bronchitis (principal); R06.02 Shortness of breath; J38.3 Other diseases of vocal cords; R91.8 Other nonspecific abnormal finding of lung field; G47.33 Obstructive sleep apnea (adult) (pediatric); Z99.89 Dependence on other enabling machines and devices; K22.81 Esophageal polyp
CPT/HCPCS: 99214

== ENCOUNTER 2024-07-22 10:07 | Outpatient (REF) | payer MEDICARE, OTHER, SELFPAY ==
--- OUTSIDE RECORDS SUMMARY | 2024-07-22 10:57 | XMS_ITS | Continuity of Care Document ---
Author Organization [facility] [address] [facility] [address] [place] [address] Phone [phone] Care Team Providers Care Entry Rep Name Role Phone Oren Estrella M.D. Care Team Information Recei salo [phone] Problems Active Problems Provider Date Pituitary adenoma [...] SIG Qnty Indications Ordering Provider Date Sildenafil [id number] Tablets Oren Estrella M.D. Vital Signs Date [...] Temo e Andrew Ricketts M.D. Created [address] [place] [address] [phone]
[2024-07-22 12:55] LABS: Basophils Percent Auto 0.7 % (0-2); Eosinophils Absolute Auto 0.1 X10*3/uL (0.0-0.4); Eosinophils Percent Auto 1.1 % (0-4); Hematocrit 43.9 % (42.0-52.0); Hemoglobin 14.8 g/dl (14.0-18.0); Imm Gran Abs Auto 0.04 X10*3/uL (0.00-0.03); Imm Gran Pct Auto 0.7 % (0.0-0.4); Lymphocytes Absolute Auto 1.4 X10*3/uL (1.2-4.9); Lymphocytes Percent Auto 25.2 % (20-40); MANUAL DIFF FLAG NO; Mean Corpuscular HGB Conc 33.7 g/dl (31.0-36.0); Mean Corpuscular Volume 94.8 fL (80.0-98.0); Mean Platelet Volume 10.1 fL (9.4-12.4); Monocytes Absolute Auto 0.7 X10*3/uL (0.1-1.2); Monocytes Percent Auto 12.4 % (2-11); Neutrophils Absolute Auto 3.3 x10*3/uL (2.0-8.3); Neutrophils Percent Auto 59.9 % (45-73); Platelet Count 214 X10*3/uL (160-400); Red Blood Count 4.63 X10*6/uL (4.60-5.80); Red Cell Distribution Width 12.9 % (11.0-16.0); White Blood Count 5.6 X10*3/uL (4.8-10.8)
[2024-07-22 13:36] LABS: Alanine Aminotransferase 22 U/L (0-40); Albumin Level 4.2 g/dL (3.5-5.0); Alkaline Phosphatase 52 U/L (39-117); Anion Gap 11 (12-20); Aspartate Amino Transferase 29 U/L (5-37); Bilirubin Direct 0.2 mg/dL (0.0-0.5); Bilirubin Total 0.5 mg/dL (0.0-1.0); Blood Urea Nitrogen 14 mg/dL (9-16); Calcium 9.4 mg/dL (8.4-10.2); Carbon Dioxide 31 mmol/L (22-29); Chloride 102 mmol/L (96-108); Estimated Glomerular Filt Rate 58; Glucose Random 82 mg/dL (60-115); Potassium 4.4 mmol/L (3.3-5.1); Sodium 140 mmol/L (135-145); Total Protein 7.3 g/dL (6.5-8.0)
[2024-07-22 13:59] LABS: Erythrocyte Sedimentation Rate 4 MM/HR (0-15)
[2024-07-28 03:54] LABS: Alpha 1 Anti-trypsin 127 mg/dL (83-199)
== END 2024-07-22 10:08 | disposition home or self-care (01) ==
LOC: HO.LAB 10:07
PROVIDERS: PCP Internal Medicine; Visit Provider Hospitalist
DX: J41.0 Simple chronic bronchitis (principal); R06.02 Shortness of breath; J38.3 Other diseases of vocal cords; R91.8 Other nonspecific abnormal finding of lung field; G47.33 Obstructive sleep apnea (adult) (pediatric); Z79.899 Other long term (current) drug therapy; K22.81 Esophageal polyp
CPT/HCPCS: 36415; 80048; 80076; 82103; 85025; 85652; 99212

== ENCOUNTER 2024-09-24 14:18 | Outpatient (AMB) | payer MEDICARE, OTHER, SELFPAY ==
[2024-09-24 14:33] VITALS: BP 114/62; PULSE 81; O2SAT 98; BMI 23.1
--- NOTE | 2024-09-24 14:33 | MHC.OFFVIS ---
Vital Signs 09/24/24 14:33 Height 6 ft 2 in Weight 179 lb 10.828 oz BMI 23.1 BP 114/62 Blood Pressure Location Lt brachial Position Sitting Pulse 81 Pulse Source Pulse Oximeter Pulse Oximetry (%) 98 Oxygen Delivery Method Room Air Intake Visit Reasons: persistent cough Allergies moxifloxacin Allergy (Severe, Verified 09/24/24 14:36) Rash HPI Comments Details: The patient is a 64-year-old gentleman with a known history of vocal cord dysfunction and asymmetry followed closely by ENT who apparently was having issues with shortness of breath back in 2018 where he underwent a soft tissue neck CT scan and also CT scan of the chest demonstrating multiple pulmonary nodules subcentimeter in nature largest 1 measuring about 4 mm in size. Subsequently after that in 2019 the patient started having worsening shortness of breath symptoms. This shortness of breath mainly when taking a deep breath in and will be intermittent in nature. He has never used inhalers. Because of the symptoms he had a full cardiac evaluation which was reassuring. More recently the patient was sleeping while using his CPAP and he woke up and could not breathe. Denies any chest pains. The symptoms were concerning enough for him to go to his primary care doctor to further discuss the issues. Therefore the patient was sent for repeat CT scan of the chest which was done at [facility]. I personally reviewed the CT scan of the chest that he had back in 2018 at [facility] demonstrating about 4 pulmonary nodules. The largest 1 4 mm in size. I did then compared to the report that we received from [facility] in appears that he has a new pulmonary nodule in the minor fissure on the right side. Therefore based on that the patient will need a repeat CT scan in June 2023. The pulmonary nodules appear to be noncalcified and appeared to be smooth borders well-circumscribed. No he stop subsolid component noted. In addition to that on the CT scan of the chest from 2019 the patient did have bilateral renal cysts. These renal cysts were not mention on the CT scan from [facility] although is difficult to know of that cuts were not low enough to tap sure that kidneys. If the patient has not had any imaging studies such as ultrasound to further address the renal cyst that should be completed. In the meantime the patient has been following closely with GI. Recently underwent a Wilson study. He has a small hiatal hernia. He is trying to maintain her reflux diet and also I encouraged him to try to sleep elevated as well. The speech therapist given similar recommendations. I do not believe that a short-acting beta agonist as warranted at this time. However, I did provide him with a peak flow meter so he can monitor closely his airway resistance. If the resistance goes down the patient should indeed consider a short-acting beta agonist. Will have him undergo pulmonary function studies as well. I also walking him to bring his CPAP in to the next visit to make sure that is adequately being treated his sleep apnea but not over treating when he is getting distention in the stomach and or irritating his larynx. 10/17/2022 the patient is here for a pulmonary follow-up visit. Since we last spoke he started developing a little laryngitis and then a productive cough. He was expectorating green phlegm although it is clearing up now. However, his cough has persisted. Feels some chest tightness in the middle the chest area. Moderate severity. He did undergo his pulmonary function studies prior to getting sick. We did review the results. It appears that he has a moderate degree of obstruction consistent moderate COPD. The patient is non smoker lifelong. Therefore is not clear why he has such as significant obstruction. He may have some untreated asthma. The patient has used rescue inhalers in the past. Although this point given Symbicort that he can use twice a day. He should rinse his mouth after using it. I am hopeful that with Symbicort his chest tightness has will improve and I am hopeful that with the budesonide component of the Symbicort she will start having improved event in his airways. He has some degree of small airways disease also consistent with likely uncontrolled asthma. He has had allergy testing in the past demonstrating minimal allergies to the environment but does not remember anything drastic. He also brought his CPAP with him. Currently set about CPAP of 6 without a ramp. AHI 0.9 which is excellent. He is using a nasal pillow mask and is working just fine. In regards of his pulmonary nodules his next CT scan will be for June 2023. He did have a CT scan at [facility] in he does have the CD although he does not have a with him. 02/08/2023 the patient is here for pulmonary follow-up visit. Since we last spoke the patient could not get the Symbicort so therefore he ended up getting Advair HFA. He did initially see any significant improvement with the medication. Also he also had an area in the mouth where he was unsure shows thrush. He also developed muscle spasms and cramps. He start the medication. After stopping he noticed that he was helping some. Although hard to know if his enough to warrant the use of the medication. He has been checking his peak flows. I did provide him with a spacer in order to minimize irritation to his mouth in case he needs to go back on the Advair. I also had a sample inhaler with levo albuterol that he could use as needed if he notices the onset of the chest tightness and shortness of breath. He will be checking his peak flows twice a day and also as needed. At nighttime he is using the CPAP. CPAP therapy continues to be affecting beneficial. He does use it for more than 4 hours a night. He is going to look to potentially switching his nasal pillows to a cradle. He will talk to a SMS regarding that. Finally. His last CT scan was back in June 2022 demonstrating a new nodule on the right hemithorax. The patient will get a repeat CT scan done June 2023 in 3. The patient prefers [facility]. 07/17/2023 the patient is here for pulmonary follow-up visit. The patient overall has been doing well. He has not had to use it Advair. A as a short-acting beta agonist study is not required either. Overall he is doing well from a respiratory status. He did have COVID when here COVID his peak flow did drop down to the highs 300. But, his typical peak flow is around 410-450. This is pretty consistent for him. The patient also has been using CPAP. His AHI continues to be below 5 which is reassuring. He does wear nasal pillows and he does have an air leak. He does try needs a chinstrap. I will request 1 from the [employer]. He does use occasional. Also we did follow-up with a CT scan of the chest that he had to follow-up is nodules. They have been stable now for about 4 years which is very reassuring. Upon evaluation in review of the images I did run into a small polypoid lesion on the esophagus. This is maybe a whole then had a CT scan itself. But he does have a GI doctor needs had a barium swallowing a pH probe I do believe that endoscopy may be helpful as well. Therefore I will send a copy to his GI doctor. Otherwise patient is doing well will follow-up in a year's time with pulmonary function studies. 07/22/2024 the patient is here for a pulmonary follow-up visit. The patient overall has been doing well. The Trelegy inhaler has been affecting beneficial. He rarely has to use his rescue inhaler. Although he has 1 available in does use it less than 2 times a week. The patient did have pulmonary function studies at [facility] which I did review and compared to his previous. Appears to show improvement as he only has a mild obstruction at this time consistent with mild COPD. Prior to that he had a moderate obstruction. The patient also went to [place] to be seen by notices because of some other incidental findings. In the process he found out that his daughters carry the alpha-1 antitrypsin gene mutation. Therefore, will go ahead and request a DNIA testing for himself as he may be the carry and also alpha-1 levels to make sure that he is getting adequate protein production. The patient also has been using the CPAP. He does use a nasal mask and is resulting in a dry mouth. The chinstrap was helping for some period time but then it became loose and then in no longer works. I did suggest he switch over to a fullface mask such as the F 40. And I will send a script to the pharmacy. If this is not effective he can always call and we can go back to the nasal mask. He continues to get supplies from his [employer] company, [employer]. His machine got a back in 2019 and is still working well. 09/24/2024 the patient is here for sick visit. August. He went to see his primary care was given initially a course of Augmentin for bronchitis. He continue coughing. Also chest tightness. The patient went back and was given a course of azithromycin and then prednisone taper. He also had a chest x-ray that was read as no acute disease. The patient is no better he still coughing significantly throughout the day in the night. He has a hard time expectorating anything. He feels tired. Denies any fevers or chills. He has been tested for COVID RSV and also flu which all negative. He continues use the Trelegy inhaler. He does not have a rescue inhaler. On exam he does have some crackles at the left base suggesting bronchopneumonia. Will go ahead and give him a neb treatment to see if this provides some relief. [facility] Medical History (Updated 09/24/24 @ 23:03 by Rubio Alexander MD) COPD (chronic obstructive pulmonary disease) FRANCISCO on CPAP Pulmonary nodules Vocal cord dysfunction Dyspnea Social History Patient Tobacco Use Status: Never used Tobacco Review of Systems Const Reports fatigue, Denies fever(s) and Denies night sweats Eyes Denies change in vision ENT Reports change in voice Card Denies chest pain and Denies dyspnea on exertion Resp Reports chest congestion, Reports cough, Denies dyspnea on exertion and Reports wheezing GI Reports dyspepsia Musc Reports no additional complaints Skin/Breast Denies rash Neuro Reports no additional complaints Endo Reports fatigue and Denies flushing Eloy/Lymph Denies easy bleeding and Denies easy bruising Aller/Immun Reports wheezing Physical Exam Vital Signs: Last Vital Signs Pulse 81 09/24/24 14:33 BP 114/62 09/24/24 14:33 Pulse Ox 98 09/24/24 14:33 Oxygen Delivery Method Room Air 09/24/24 14:33 BMI result Body Mass Index 23.1 Const General: comfortable HEENT Head: Yes normocephalic Eyes General: appearance normal, both eyes and all related structures Neck Neck: Yes supple Chest Chest palpation & inspection: normal inspection of the chest Resp Effort & Inspection: normal respiratory effort Auscultation: crackles on the left at the base and diminished lung sounds Cardio Rate: regular rate Rhythm: regular rhythm Heart sounds: S1 normal heart sound present and S2 normal heart sound present GI Auscultation: normal bowel sounds Skin General skin exam: no rashes or lesions noted Extrem General: Yes no clubbing, cyanosis or edema Office Procedures Nebulizer Treatment Nebulizer Treatment [id number]/MDI RX initial, or Nebulizer Subsequent Treatment Office Meds ipratropium 0.5 mg-albuterol 3 mg (2.5 mg base)/3 mL nebulization soln Performing Provider: Rubio Alexander MD Performing Location: [facility] Administered by: Annette Thompson LPN on 09/24/24 15:23 Dose Route Admin Location Dispensed Lot Number Expiration Date [employer]DC [employer] 3 mL inhalation 3 mL [id number] 11/04/25 [id number] [employer] Assessment & Plan Assessment & Plan (1) Bronchopneumonia: Comment: LLL crackles Code(s): J18.0 - Bronchopneumonia, unspecified organism Category: Medical (2) COPD (chronic obstructive pulmonary disease): Comment: Moderate-->mild obstruction based on PFTs Code(s): J44.9 - Chronic obstructive pulmonary disease, unspecified Category: Medical Qualifiers: COPD type: chronic bronchitis Chronic bronchitis type: simple Qualified Code(s): J41.0 - Simple chronic bronchitis (3) Dyspnea: Code(s): R06.00 - Dyspnea, unspecified Category: Medical Qualifiers: Dyspnea type: shortness of breath Qualified Code(s): R06.02 - Shortness of breath (4) Vocal cord dysfunction: Comment: asymmetrical vocal cords, speech therapy Code(s): J38.3 - Other diseases of vocal cords Category: Medical (5) Pulmonary nodules: Code(s): R91.8 - Other nonspecific abnormal finding of lung field Category: Medical (6) FRANCISCO on CPAP: Code(s): G47.33 - Obstructive sleep apnea (adult) (pediatric); Z99.89 - Dependence on other enabling machines and devices Category: Medical (7) Esophageal polyp: Code(s): K22.81 - Esophageal polyp Category: Medical Plan start Vantin/Doxycycline cough medicine needs a nebulizer for Albuterol Trelegy KERMIT as needed reflux diet HOB elevated while sleeping continue PAP CPAP 6, AHI 0.9, requesting F40 mask F/U 6-8 weeks Orders: Orders AMB Nebulizer Treatment Today J41.0 - Simple chronic bronchitis Medications: New codeine-guaifenesin 10-100 mg/5 mL 10 mL PO Q6H PRN 300 mL 0RF cough 10 days albuterol sulfate 90 mcg/actuation 2 inhalations inhalation Q6H PRN 18 grams 12RF shortness of breath or wheezing 30 days J44.9 - Chronic obstructive pulmonary disease, unspecified doxycycline hyclate 100 mg PO BID 20 caps 0RF 10 days cefpodoxime must administer with a meal/food 200 mg PO BID 20 tabs 0RF albuterol sulfate 2.5 mg (3 mL) inhalation Q6H PRN 180 mL 11RF shortness of breath or wheezing 30 days Coding Level of Care Code Est Pt Level 4 (82781) Complex EM visit Add On G2211 Diagnoses Bronchopneumonia J18.0 Simple chronic bronchitis J41.0 COPD type: chronic bronchitis Chronic bronchitis type: simple Shortness of breath R06.02 Dyspnea type: shortness of breath Vocal cord dysfunction J38.3 Pulmonary nodules R91.8 FRANCISCO on CPAP G47.33; Z99.89 Esophageal polyp K22.81 CPT Codes Nebulizer Treatment - Nebulizer Treatment, initial or subsequent: [id number]/MDI RX initial, or Nebulizer Subsequent Treatment ([id number]) Time Spent (min) 30
--- OUTSIDE RECORDS SUMMARY | 2024-09-24 15:21 | XMS_ITS | Referral Summary ---
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 Plow Tractor Operator Name Role Phone Unavailable Primary Care Provider Unavailabl e Allergies Active Allergy Reactions Criticality Noted Date Comments Moxifloxacin Hcl Dermatitis High 10/30/2020 Immunizations Immunization Administration Dates Next Due Covid-19, Pfizer, mRNA, Stutsman valent, PF 30 mcg/0.3 mL dose (for ages 12 and older) 11/27/2020,10/30/2020 Social History Tobacco Use Types Packs/Day Years Used Date Smoking Tobacco: Never Assessed Sex and Gender Information Value Date Recorded Sex Assigned at Male 11/25/2020 9:15 PM EDT Legal Sex Male 8:52 AM EDT Gender Identity Male 11/25/2020 9:15 PM EDT Sexual Orientation Straight 11/25/2020 9: 15 PM EDT Plan of Treatment Not on file Insurance [facility]
--- OUTSIDE RECORDS SUMMARY | 2024-09-24 15:21 | XMS_ITS | Data Portability ---
Author Organization [facility] [place] Address [address] [place] [address] Care Team Providers Care Alarm Adjuster Name Role Phone ALHAJI MENDOZA Primary Care Provider [phone] ALHAJI MENDOZA Referring Provider [phone] Assessment Encounter Date Assessment Date Assessment LastModified by Organization Details LastModified Time 12/05/2023 12/05/2023 HPI : Patient is here today with complaints of bilateral knee pain. ?The patient is experiencing bilateral knee pain, which [...] persistent local or systemic infection. Physical Exam ? ? ?: Patient is well nourished, well-developed, in no acute distress, with appropriate mood and affect. The patient is oriented to time, place, and person. Bilateral knee motion is reduced and does cause significant pain. The right knee moves from 0-130 degrees and the left knee moves from 0-130 degrees. The knees are stable within those [id number]-oa-herdf n. The alignment of the right knee is neutral. The alignment of the left knee is neutral. Knee muscle strength is normal bilaterally with the skin intact. Pedal pulses are palpable. Hip examination, including flexion and internal rotation, was negative in that groin pain was not produced. Assessment/Plan ? ? ?: The patient has bilateral knee arthritis. An [...] view 024 12/05/19 24 [email or web address] [facility], [address], [address], [place], [address], 4 07:01:57 XR, knee, 1 or 2 view 024 12/05/19 24 [email or web address] [facility], [address], [place], [address], 4 07:01:57 Medication Orders None record ed. Patient TargetsNo targets recorded. Patient Instructions Encounter Date Encounter Id Patient Instructions Last Modified By Organization Details Last Modified Time 12/05/2023 [id number] AP, lateral, Valdes, and patellar view radiographs of the right knee taken today demonstrate right knee degenerative joint disease with joint space narrowing, osteophyte formation, and subchondral sclerosis. There is utgl-ca-hcxi articulation in the medial compartment. AP, lateral, [...] Time Osteoarthri tis of left knee joint [id number] 09 Active 2023 James Mares MD [address], [place], [address], [facility], P 4 16:07:43 Problem Notes None recorded. Procedures Surgical History Date Name Laterality Status Provider Name and Address Organization Details Recorded Time excision of ganglion cyst completed [facility], [facility] 12/08/2023 09:38:26 repair of meniscus completed [facility], [facility] 12/08/2023 09:38:52 Imaging Results None recorded. Procedure Notes None recorded. Medical Equipment None Reported. Allergies Allergen ID Allergen Name Allergen Category Reaction Reaction Severity Criticality Documentation Date Start Date Code Code System Note Provider Name and Address Organization Details Recorded Time 99562 moxifloxa nimisha medicatio n Not available Not available Not available 12/05/2023 76821 2 [facility] [place] [facility], [facility], P 4 15:53:24 Medications Name Sig Start [...] Updated DateTime 12/05/2023 187.96 cm 24.1 kg/m2 [address]409.[address] [facility], [facility] 12/05/2023 15:53:35 Social History Question Answer Notes LastModified by Organizat ion Details LastModified Time Tobacco Smoking Status Never Smoker Marii Oliveira null, [place] [facility] 12/08/2023 09:37:51 What Is Your Level [...] Diagnosis/Indication Diagnosis SNOMED-CT Code Diagnosis ICD10 Code Diagnosis Note [id number] James Mares MD [address] [address] 12/05/2023 15:32:43 12/05/2023 16:09:16 Pain of right knee joint [id number] 10892 M25.561 Additional diagnosis detail: Pain, joint, knee, right Pain of le ft knee joint 5323053048 49095 M25.562 Additional diagnosis detail: Pain, joint, knee, left Osteoarthr itis of left knee joint [id number] 47268 M17.12 Additional diagnosis detail: Primary osteoarthr itis of left knee Health Concerns Section Related Observation LastModified by Organization Detai ls LastModified Time None Recorded Concern Status LastModified by Organization Details LastModified Time None Recorded Advance Directives Directive None Recorded Payers Encounter Date Sequence Insurance Name Policy Number Policy Finney Covered Member ID Ifnney Member ID Guarantor Name 12/05/2023 1 MEDICARE B-CT: NGS Alec Cain [id number] Alec Cain 12/05/2023 2 WPS - FOR LIFE (MEDICARE SUPPLEMENT) Alec Cain [id number] Alec Cain
--- OUTSIDE RECORDS SUMMARY | 2024-09-24 15:21 | XMS_ITS | Continuity of Care Document ---
Author Organization [facility] Address [address] [place] [address]- Care Team Providers Care Clerical Coordinator Name Role Phone Oren Estrella MD Primary Care Physician Encounter 09/16/24 - 09/23/24 [facility] [address], [address] [place] [address]- Attending Physician: Riya Arambula NP Admitting Physician: Riya Arambula NP Referring Physician: Riya Arambula NP Encounter Type: OutPatient One Time Allergies, Adverse Reactions, Alerts Substance Criticality Severity Reaction Reaction Severity Status moxifloxacin Active Immunizations Given and Recorded Vaccine Date Status Refusal Reason rabies vaccine, human diploid cell 03/28/21 Given rabies vaccine, human diploid cell 03/21/21 Given rabies vaccine, human diploid cell 03/17/21 Given rabies vaccine, human diploid cell 03/14/21 Given Rabies Immune Globulin, Human 1 03/14/21 Given Hepatitis A Adult Vaccine 12/18/14 Given Hepatitis A Adult Vaccine 05/29/14 Given Typhoid Vaccine, Inactivated 06/19/14 Given 1Result Comment: Given in L upper arm and bilat thighs Problem List Condition Confirmation Course Effective Dates Status Health St atus Informant Abdominal aortic aneurysm dissection Confirmed Active Travel vaccinations Confirmed Active Results Radiology Reports * Exam Date Time Procedure Performing Provider Status 09/16/24 1:22 PM Chest 2 Views Frontal and Lat Marilyn Guzman; Marie (Verified) Notes: (Chest 2 Views Frontal and Lat) Reason For Exam: R05.3 Persistent cough RESULT: Chest 2 Views Frontal and Lat Chest 2 Views Frontal and Lat Reason: R05.3 Persistent cough COMPARISON: 01/26/2024 FINDINGS: No acute cardiopulmonary process Gastric distention similar to previous exams IMPRESSION: No acute abnormality. Gastric distention is similar to prior studies WSN: [id number] Ordering Physician: Riya Arambula Dictated By: Augustus Gale MD Dictated Date/Time: 09/16/24 1:28 pm Reviewed By: Augustus Gale MD Signed By: Augustus Gale MD Signed Date/Time: 09/16/24 1:28 pm Transcribed By: JUAN Transcribed Date/Time: 09/16/24 1:26 pm Social History Social History Type Response Smoking Status Never (less than 100 in lifetime) entered on: 06/27/23 Sex Sex Representation Male (finding) Patient Care team information Care Team Personnel Name: Oren Estrella MD Position: [facility] Outreach Member Role: PCP Address: [address] [place] [address] Telecom: Care Team Related Persons Name: PEPPER DYER Insurance Providers Guarantor name: STEPHANIE GOMEZ Health Plan Information #: 1 Payer: MEDICARE PART B OUTPT Member Number: [id number] Policy Number: NA Group Number: NA Health Plan Information #: 2 Payer: [facility] MCR A ONLY Member Number: [id number] Policy Number: NA Group Number: NA
--- OUTSIDE RECORDS SUMMARY | 2024-09-24 15:21 | XMS_ITS | Clinical Summary ---
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 Name Role Phone Unavailable Primary Care Provider Unavailabl e Allergies Active Allergy Reactions Criticality Noted Date Comments Moxifloxacin Hcl Dermatitis High 10/30/2020 Immunizations Immunization Administration Dates Next Due Covid-19, Pfizer, mRNA, [place] valent, PF 30 mcg/0.3 mL dose (for [...] 9: 15 PM EDT Plan of Treatment Health Maintenance Due Date Last Done Comments Cologuard 1960 Colon Cancer Screening 1960 Colonoscopy 1960 FOBT / Fit Test 1958 Sigmoidoscopy 1960 DTaP,Tdap,and Td Vaccines (1 - Tdap) 02/18/1980 Pneumococcal Vaccine: 50+ Years (1 of 1 - PCV) 02/18/2008 Zoster Vaccines (2 of 2) 09/06/2018 07/12/2018 COVID-19 Vaccine (3 - 2023-2 5 season) 2024 11/27/2020, 10/30/2020 Influenza Vaccine (#1) 2024 05/07/2018 Alcohol/Substance Use Screening 08/07/2024 Health Care Proxy Review 08/07/2024 Social Drivers of Health Annual Screening 08/07/2024 RSV Vaccine (60+ years old a nd patients) (1 - 1-dose 75+ series) 2033 Hepatitis B Vaccines Aged Out No long er eligible based on patient's age to complete this topic Insurance [facility]
--- OUTSIDE RECORDS SUMMARY | 2024-09-24 15:21 | XMS_ITS | Continuity of Care Document ---
Author Organization [facility] [address] [facility] [address] [place] [address] Phone [phone] Care Team Providers Care Certified Orthotist Name Role Phone Oren Estrella M.D. Care Team Information Recei salo [phone] Problems Active Problems Provider Date Pituitary adenoma [...] SIG Qnty Indications Ordering Provider Date Sildenafil [id number] Tablets Oren Estrella M.D. Vital Signs Date [...] Temo e Andrew Ricketts M.D. Created [address] [facility] [address] [place] [address] [phone]
== END 2024-09-24 15:43 | disposition home or self-care (01) ==
PROVIDERS: PCP Internal Medicine; Visit Provider Hospitalist
DX: J18.0 Bronchopneumonia, unspecified organism (principal); J41.0 Simple chronic bronchitis; R06.02 Shortness of breath; J38.3 Other diseases of vocal cords; R91.8 Other nonspecific abnormal finding of lung field; G47.33 Obstructive sleep apnea (adult) (pediatric); Z99.89 Dependence on other enabling machines and devices; K22.81 Esophageal polyp
CPT/HCPCS: 99214; G2211

== ENCOUNTER → 2024-09-24 14:18 | Outpatient (BNVA) | payer MEDICARE, OTHER, SELFPAY | PROVIDERS: PCP Internal Medicine; Visit Provider Hospitalist | DX: J18.0 Bronchopneumonia, unspecified organism (principal); J41.0 Simple chronic bronchitis; J38.3 Other diseases of vocal cords; R91.8 Other nonspecific abnormal finding of lung field; G47.33 Obstructive sleep apnea (adult) (pediatric); R06.02 Shortness of breath; K22.81 Esophageal polyp; Z99.89 Dependence on other enabling machines and devices | CPT/HCPCS: 94640; 99212 ==

== ENCOUNTER 2024-11-07 13:16 | Outpatient (AMB) | payer MEDICARE, OTHER, SELFPAY ==
--- NOTE | 2024-11-07 13:20 | MHC.OFFVIS ---
Vital Signs 11/07/24 13:21 Height 6 ft 2 in Weight 180 lb 12.465 oz BMI 23.2 BP 100/58 L Blood Pressure Location Rt brachial Position Sitting Pulse 74 Pulse Source Pulse Oximeter Pulse Oximetry (%) 97 Oxygen Delivery Method Room Air Intake Visit Reasons: Cough Allergies moxifloxacin Allergy (Severe, Verified 11/07/24 13:24) Rash HPI Comments Details: The patient is a 64-year-old gentleman with a known history of vocal cord dysfunction and asymmetry followed closely by ENT who apparently was having issues with shortness of breath back in 2018 where he underwent a soft tissue neck CT scan and also CT scan of the chest demonstrating multiple pulmonary nodules subcentimeter in nature largest 1 measuring about 4 mm in size. Subsequently after that in 2019 the patient started having worsening shortness of breath symptoms. This shortness of breath mainly when taking a deep breath in and will be intermittent in nature. He has never used inhalers. Because of the symptoms he had a full cardiac evaluation which was reassuring. More recently the patient was sleeping while using his CPAP and he woke up and could not breathe. Denies any chest pains. The symptoms were concerning enough for him to go to his primary care doctor to further discuss the issues. Therefore the patient was sent for repeat CT scan of the chest which was done at [facility]. I personally reviewed the CT scan of the chest that he had back in 2018 at [facility] demonstrating about 4 pulmonary nodules. The largest 1 4 mm in size. I did then compared to the report that we received from [facility] in appears that he has a new pulmonary nodule in the minor fissure on the right side. Therefore based on that the patient will need a repeat CT scan in June 2023. The pulmonary nodules appear to be noncalcified and appeared to be smooth borders well-circumscribed. No he stop subsolid component noted. In addition to that on the CT scan of the chest from 2019 the patient did have bilateral renal cysts. These renal cysts were not mention on the CT scan from [facility] although is difficult to know of that cuts were not low enough to tap sure that kidneys. If the patient has not had any imaging studies such as ultrasound to further address the renal cyst that should be completed. In the meantime the patient has been following closely with GI. Recently underwent a Wilson study. He has a small hiatal hernia. He is trying to maintain her reflux diet and also I encouraged him to try to sleep elevated as well. The speech therapist given similar recommendations. I do not believe that a short-acting beta agonist as warranted at this time. However, I did provide him with a peak flow meter so he can monitor closely his airway resistance. If the resistance goes down the patient should indeed consider a short-acting beta agonist. Will have him undergo pulmonary function studies as well. I also walking him to bring his CPAP in to the next visit to make sure that is adequately being treated his sleep apnea but not over treating when he is getting distention in the stomach and or irritating his larynx. 10/17/2022 the patient is here for a pulmonary follow-up visit. Since we last spoke he started developing a little laryngitis and then a productive cough. He was expectorating green phlegm although it is clearing up now. However, his cough has persisted. Feels some chest tightness in the middle the chest area. Moderate severity. He did undergo his pulmonary function studies prior to getting sick. We did review the results. It appears that he has a moderate degree of obstruction consistent moderate COPD. The patient is non smoker lifelong. Therefore is not clear why he has such as significant obstruction. He may have some untreated asthma. The patient has used rescue inhalers in the past. Although this point given Symbicort that he can use twice a day. He should rinse his mouth after using it. I am hopeful that with Symbicort his chest tightness has will improve and I am hopeful that with the budesonide component of the Symbicort she will start having improved event in his airways. He has some degree of small airways disease also consistent with likely uncontrolled asthma. He has had allergy testing in the past demonstrating minimal allergies to the environment but does not remember anything drastic. He also brought his CPAP with him. Currently set about CPAP of 6 without a ramp. AHI 0.9 which is excellent. He is using a nasal pillow mask and is working just fine. In regards of his pulmonary nodules his next CT scan will be for June 2023. He did have a CT scan at [facility] in he does have the CD although he does not have a with him. 02/08/2023 the patient is here for pulmonary follow-up visit. Since we last spoke the patient could not get the Symbicort so therefore he ended up getting Advair HFA. He did initially see any significant improvement with the medication. Also he also had an area in the mouth where he was unsure shows thrush. He also developed muscle spasms and cramps. He start the medication. After stopping he noticed that he was helping some. Although hard to know if his enough to warrant the use of the medication. He has been checking his peak flows. I did provide him with a spacer in order to minimize irritation to his mouth in case he needs to go back on the Advair. I also had a sample inhaler with levo albuterol that he could use as needed if he notices the onset of the chest tightness and shortness of breath. He will be checking his peak flows twice a day and also as needed. At nighttime he is using the CPAP. CPAP therapy continues to be affecting beneficial. He does use it for more than 4 hours a night. He is going to look to potentially switching his nasal pillows to a cradle. He will talk to a SMS regarding that. Finally. His last CT scan was back in June 2022 demonstrating a new nodule on the right hemithorax. The patient will get a repeat CT scan done June 2023 in 3. The patient prefers [facility]. 07/17/2023 the patient is here for pulmonary follow-up visit. The patient overall has been doing well. He has not had to use it Advair. A as a short-acting beta agonist study is not required either. Overall he is doing well from a respiratory status. He did have COVID when here COVID his peak flow did drop down to the highs 300. But, his typical peak flow is around 410-450. This is pretty consistent for him. The patient also has been using CPAP. His AHI continues to be below 5 which is reassuring. He does wear nasal pillows and he does have an air leak. He does try needs a chinstrap. I will request 1 from the [employer]. He does use occasional. Also we did follow-up with a CT scan of the chest that he had to follow-up is nodules. They have been stable now for about 4 years which is very reassuring. Upon evaluation in review of the images I did run into a small polypoid lesion on the esophagus. This is maybe a whole then had a CT scan itself. But he does have a GI doctor needs had a barium swallowing a pH probe I do believe that endoscopy may be helpful as well. Therefore I will send a copy to his GI doctor. Otherwise patient is doing well will follow-up in a year's time with pulmonary function studies. 07/22/2024 the patient is here for a pulmonary follow-up visit. The patient overall has been doing well. The Trelegy inhaler has been affecting beneficial. He rarely has to use his rescue inhaler. Although he has 1 available in does use it less than 2 times a week. The patient did have pulmonary function studies at [facility] which I did review and compared to his previous. Appears to show improvement as he only has a mild obstruction at this time consistent with mild COPD. Prior to that he had a moderate obstruction. The patient also went to [place] to be seen by notices because of some other incidental findings. In the process he found out that his daughters carry the alpha-1 antitrypsin gene mutation. Therefore, will go ahead and request a DNIA testing for himself as he may be the carry and also alpha-1 levels to make sure that he is getting adequate protein production. The patient also has been using the CPAP. He does use a nasal mask and is resulting in a dry mouth. The chinstrap was helping for some period time but then it became loose and then in no longer works. I did suggest he switch over to a fullface mask such as the F 40. And I will send a script to the pharmacy. If this is not effective he can always call and we can go back to the nasal mask. He continues to get supplies from his [employer], [employer]. His machine got a back in 2019 and is still working well. 09/24/2024 the patient is here for sick visit. August. He went to see his primary care was given initially a course of Augmentin for bronchitis. He continue coughing. Also chest tightness. The patient went back and was given a course of azithromycin and then prednisone taper. He also had a chest x-ray that was read as no acute disease. The patient is no better he still coughing significantly throughout the day in the night. He has a hard time expectorating anything. He feels tired. Denies any fevers or chills. He has been tested for COVID RSV and also flu which all negative. He continues use the Trelegy inhaler. He does not have a rescue inhaler. On exam he does have some crackles at the left base suggesting bronchopneumonia. Will go ahead and give him a neb treatment to see if this provides some relief. 11/07/2024 the patient is here for a pulmonary follow-up visit. Overall he is feeling better. He did complete the antibiotics and initially felt great but then started developing worsening cough. He was not sure what to do he did call the office and we did recommend he repeat the x-ray. At that point he was in [place] so he could not do so. He went back on this nebulizer and is ultimately back to his baseline. The patient also has been using CPAP. He did start using the new fullface mask, F40. Seems like the leakage issues have subsided significantly although the pressure are not high enough in his AHI is been going up. He does have a simple CPAP ResMed so does not have any APAP features. I did increase the CPAP from 6-8 and is going to monitor the response to therapy monitoring his AHI. And we will continue adjusted accordingly. We can also consider getting him an APAP specially since his machine is older than 6 years old. The patient follow-up in April will have her get an x-ray done to make sure that we see resolution of his pneumonic process. He develops any worsening symptoms prior to that he will call. [facility] Medical History (Updated 09/24/24 @ 23:03 by Rubio Aleaxnder MD) COPD (chronic obstructive pulmonary disease) FRANCISCO on CPAP Pulmonary nodules Vocal cord dysfunction Dyspnea Social History Patient Tobacco Use Status: Never used Tobacco Review of Systems Const Reports fatigue, Denies fever(s) and Denies night sweats Eyes Denies change in vision ENT Reports change in voice Card Denies chest pain and Denies dyspnea on exertion Resp Denies chest congestion, Reports cough, Denies dyspnea on exertion and Denies wheezing GI Reports dyspepsia Musc Reports no additional complaints Skin/Breast Denies rash Neuro Reports no additional complaints Endo Reports fatigue and Denies flushing Eloy/Lymph Denies easy bleeding and Denies easy bruising Aller/Immun Denies wheezing Physical Exam Vital Signs: Last Vital Signs Pulse 74 11/07/24 13:21 BP 100/58 L 11/07/24 13:21 Pulse Ox 97 04/03/25 13:21 Oxygen Delivery Method Room Air 11/07/24 13:21 BMI result Body Mass Index 23.2 Const General: comfortable HEENT Head: Yes normocephalic Eyes General: appearance normal, both eyes and all related structures Neck Neck: Yes supple Chest Chest palpation & inspection: normal inspection of the chest Resp Effort & Inspection: normal respiratory effort Auscultation: no crackles and diminished lung sounds Cardio Rate: regular rate Rhythm: regular rhythm Heart sounds: S1 normal heart sound present and S2 normal heart sound present GI Auscultation: normal bowel sounds Skin General skin exam: no rashes or lesions noted Extrem General: Yes no clubbing, cyanosis or edema Assessment & Plan Assessment & Plan (1) COPD (chronic obstructive pulmonary disease): Comment: Moderate-->mild obstruction based on PFTs Code(s): J44.9 - Chronic obstructive pulmonary disease, unspecified Category: Medical Qualifiers: COPD type: chronic bronchitis Chronic bronchitis type: simple Qualified Code(s): J41.0 - Simple chronic bronchitis (2) Dyspnea: Code(s): R06.00 - Dyspnea, unspecified Category: Medical Qualifiers: Dyspnea type: shortness of breath Qualified Code(s): R06.02 - Shortness of breath (3) Vocal cord dysfunction: Comment: asymmetrical vocal cords, speech therapy Code(s): J38.3 - Other diseases of vocal cords Category: Medical (4) Pulmonary nodules: Code(s): R91.8 - Other nonspecific abnormal finding of lung field Category: Medical (5) FRANCISCO on CPAP: Code(s): G47.33 - Obstructive sleep apnea (adult) (pediatric); Z99.89 - Dependence on other enabling machines and devices Category: Medical (6) Esophageal polyp: Code(s): K22.81 - Esophageal polyp Category: Medical Plan Trelegy KERMIT as needed reflux diet HOB elevated while sleeping adjusted PAP CPAP 6->8, F40 mask CXR F/U April 2025 Coding Level of Care Code Est Pt Level 4 (92467) Complex EM visit Add On G2211 Diagnoses Simple chronic bronchitis J41.0 COPD type: chronic bronchitis Chronic bronchitis type: simple Shortness of breath R06.02 Dyspnea type: shortness of breath Vocal cord dysfunction J38.3 Pulmonary nodules R91.8 FRANCISCO on CPAP G47.33; Z99.89 Esophageal polyp K22.81 Time Spent (min) 17
[2024-11-07 13:21] VITALS: BP 100/58; PULSE 74; O2SAT 97; BMI 23.2
--- OUTSIDE RECORDS SUMMARY | 2024-11-07 14:27 | XMS_ITS | Referral Summary ---
Author Organization [facility] Address [address] [place] [address] Care Team Providers Care Gun Numberer Name Role Phone Unavailable Primary Care Provider Unavailabl e Allergies Active Allergy Reactions Criticality Noted Date Comments Moxifloxacin Hcl Dermatitis High 10/30/2020 Immunizations Immunization Administration Dates Next Due Covid-19, Pfizer, mRNA, [place] valent, PF 30 mcg/0.3 mL dose (for [...] Plan of Treatment Not on file Insurance [facility]
--- OUTSIDE RECORDS SUMMARY | 2024-11-07 14:27 | XMS_ITS | Continuity of Care Document ---
Author Organization [facility] [address] [facility] [address] [place] [address] Phone [phone] Care Team Providers Care Health Aide Name Role Phone Oren Estrella M.D. Care Team Information Recei salo [phone] Problems Active Problems Provider Date Pituitary adenoma [...] SIG Qnty Indications Ordering Provider Date Sildenafil [id number] Tablets Oren Estrella M.D. Vital Signs Date [...] Temo e Andrew Ricketts M.D. Created [address] [facility] [address] [place] [address] [phone]
--- OUTSIDE RECORDS SUMMARY | 2024-11-07 14:27 | XMS_ITS | Clinical Summary ---
Author Organization [facility] Address [address] [place] [address] Care Team Providers Care Enrichment Director Name Role Phone Unavailable Primary Care Provider Unavailabl e Allergies Active Allergy Reactions Criticality Noted Date Comments Moxifloxacin Hcl Dermatitis High 10/30/2020 Immunizations Immunization Administration Dates Next Due Covid-19, Pfizer, mRNA, [place] valent, PF 30 mcg/0.3 mL dose (for [...] - 2023-2 5 season) 2024 11/27/2020, 10/30/2020 Alcohol/Substance Use Screening 08/07/2024 Depression Screening and Follow-Up 08/07/2024 Health Care Proxy Review 08/07/2024 Social Drivers of Health Annual Screening 08/07/2024 Influenza Vaccine (Season Ended) 2025 05/07/2018 RSV Vaccine (60+ years old a nd patients) (1 - 1-dose 75+ series) 2033 Hepatitis B Vaccines Aged Out No long er eligible based on patient's age to complete this topic Insurance [facility]
--- OUTSIDE RECORDS SUMMARY | 2024-11-07 14:27 | XMS_ITS | Data Portability ---
Author Organization [facility], [facility] Address [address] [place] [address] Care Team Providers Care Upsetter Helper Name Role Phone ALHAJI MENDOZA Referring Provider [phone] ALHAJI MENDOZA Primary Care Provider [phone] Assessment Encounter Date Assessment Date Assessment LastModified by Organization Details LastModified Time 03/19/2024 03/19/2024 Assessment: Pt presents with signs and symptoms consistent w/ R lateral epicondylitis. 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 [email or web address] Not available 03/20/2024 20:21:30 03/25/2024 03/25/2024 A: [...] to red without issue. P: Cont POC. 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 Reason for Referral None Reported. Results Created Date Observation Date Name Description Value Unit Range Abnormal Flag Note LastModifiedBy Organization Detail LastModifiedTime 03/13/20 24 03/13/2024 XR, elbow , 2 view http:/ [email or web address] ?Encry pted=s hAaTro YD8dLq bEUv6g %2BXZw aYqtaq 0bqfl% 2Fg9IQ a4ajBk vP9nXo QUaueC m3YtLR FvZlgJ JJ8[place] HZtai3 3k6339 AC0Kob H2BUaH eUC8mr 84%3D INTERFACE [facility] [address], [place], [address], 03/13/2024 09:00:47 03/13/20 24 03/13/2024 XR, elbow , 2 view [email or web address]:/ [email or web address] ?Encry pted=s hAaTro YD8dLq bEUv6g %2BXZw aYqtaq 0bqfl% 2Fg9IQ a4ajBk vP9nXo QUaueC m3YtLR FvZlgJ JJ8[place] HZtai3 0j0858 AC0Kob H2BUaH eUC8mr 84%3D INTERFACE [facility] [address], [place], [address], 03/13/2024 09:00:49 Result Notes None recorded. Procedures Surgical History Date Name Laterality Status Provider Name and Address Organization Details Recorded Time 4 73649 Therapeutic Exercise (1:1) completed CHRISTINA BAUM DPT [address], [place], [address], [facility] 04/15/2024 10:18:23 4 99633 Therapeutic Exercise (1:1) completed Phuong Orellana PTA [address], [place], [address], [facility] 04/02/2024 10:20:44 4 24253 Therapeutic Exercise (1:1) completed Phuong Orellana PTA [address], [place], [address], [facility] 03/25/2024 09:11:06 4 37894: Manual therapy completed Phuong Orellana PTA [address], [place], [address], [facility] 03/25/2024 09:11:04 4 13795 Therapeutic Exercise (1:1) completed CHRISTINA BAUM DPT [address], [place], [address], [facility] 03/20/2024 20:18:25 4 38082: Low complexity PT Eval completed JESSICA ROET [address], [place], [address], [facility] 03/20/2024 20:18:27 4 G8419 BMI Outside Normal Parameters, F/U not Documented completed CHRISTINA BAUM DPT [address], [place], [address], [facility] 03/20/2024 20:22:07 4 G8427 Current Medication Documented completed CHRISTINA BAUM DPT [address], [place], [address], [facility] 03/20/2024 20:22:24 Imaging Results Imaging Date Name Status LastModified by Organiz ation Details LastModified Time 03/13/2024 XR, elbow, 2 view completed INTERFACE [facility] [address], [place], [address], 03/13/2024 09:00:47 03/13/2024 XR, elbow, 2 view completed INTERFACE [facility] [address], [place], [address], 03/13/2024 09:00:49 Procedure Notes None recorded. Medical Equipment None Reported. Allergies Allergen ID Allergen Name Allergen Category Reaction Reaction Severity Criticality Documentation Date Start Date Code Code System Note Provider Name and Address Organization Details Recorded Time 307865 moxifloxa nimisha medicatio n Not available Not available Not available 03/13/2024 15909 2 RxNorm SALEEM lazo, [facility] 4 09:15:52 Medications Name Sig Start [...] Updated DateTime 04/24/2024 187.96 cm 23.1 kg/m2 93794.63 g SALEEM CHOUDHARY [place] - [place] [facility] 04/24/2024 08:27:03 Social History None recorded. Functional Status None recorded. Mental Status None recorded. Family History Nothing Reported. Medical History No medical history recorded. Past Encounters Encounter ID Performer Location Encounter Start Date Encounter Closed Date Diagnosis/Indication Diagnosis SNOMED-CT Code Diagnosis ICD10 Code Diagnosis Note [id number] Cecil Canseco MD [facility] [address]st [address] [facility] [place] [address] 03/13/2024 08:40:34 04/09/2024 20:06:00 Pain of right elbow joint 2225620433 2162773 M25.521 Lateral epicondylitis 20 5987517 M77.11 [id number] Cecil Canseco MD [facility] [address] [place] [address] 03/19/2024 12:21:17 03/19/2024 13:32:30 Lateral epicondylitis of right humerus 4805794620 69068 M77.11 [id number] [facility] [address] [place] [address] 03/25/2024 08:25:37 03/25/2024 09:29:34 Lateral epicondylitis of right humerus 0132088260 95921 M77.11 [id number] [facility] [address] [place] [address] 04/01/2024 15:26:11 04/01/2024 16:08:30 Lateral epicondylitis of right humerus 2223714308 18391 M77.11 [id number] [facility] [address] [place] [address] 04/15/2024 08:55:51 04/15/2024 10:00:15 Lateral epicondylitis of right humerus 5010356956 04924 M77.11 [id number] Cecil Canseco MD [facility] 1st [address] [place] [address] 04/24/2024 08:22:35 05/15/2024 11:58:05 Lateral epicondylitis of right humerus 6450234698 66418 M77.11 Health Concerns Section Related Observation LastModified by Organization Detai ls LastModified Time None Recorded Concern Status LastModified by Organization Details LastModified Time None Recorded Advance Directives Directive None Recorded Payers Encounter Date Sequence Insurance Name Policy Number Policy Finney Covered Member ID Finney Member ID Guarantor Name 03/19/2024 2 WPS - FOR LIFE (MEDICARE SUPPLEMENT) Alec Veit [id number] Alec Veit 03/19/2024 1 MEDICARE B-RI: [facility] Alec Kenton Veit [id number] Alec Veit 03/25/2024 2 WPS - FOR LIFE (MEDICARE SUPPLEMENT) Alec Veit [id number] Alec Veit 03/25/2024 1 MEDICARE B-RI: [facility] Alec Kenton Veit [id number] Alec Veit 04/01/2024 2 WPS - FOR LIFE (MEDICARE SUPPLEMENT) Alec Veit [id number] Alec Veit 04/01/2024 1 MEDICARE B-RI: [facility] Alec M Veit [id number] Alec Veit 04/15/2024 2 WPS - FOR LIFE (MEDICARE SUPPLEMENT) Alec Veit [id number] Alec Veit 04/15/2024 1 MEDICARE B-RI: [facility] Alec M Veit [id number] Alec Veit 04/24/2024 2 WPS - FOR LIFE (MEDICARE SUPPLEMENT) Alec Veit [id number] Alec Veit 04/24/2024 1 MEDICARE B-RI: [employer] Alec M Veit [id number] Alec Veit Notes Date Note Type Note [...] pain with gripping, 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 Pt notes that the pain is a sharp 4-5/10 pain. JESSICA ROET [address], [place], [address], [facility] 03/20/2024 20:23:04 03/25/2024 text/html Pt states he is now having shoulder and wrist pain- pre-existing, but recently flared up. Phuong Orellana, [employer]IOR [employer] [address], [place], [address], [facility] 03/25/2024 12:38:34 04/01/2024 text/html Pt states he now has on/off pain in the elbow, but with improvement since starting PT. Phuong Orellana SENIOR [employer] DEVELOPER [address], [place], [address], [facility] 04/02/2024 10:22:07 04/15/2024 text/html Pt reports that he is doing okay today. Pt says that he does have some discomfort at a 3-4/10 when reaching for his grandchild or trying to pick something up quickly. Pt notes that things like lifting a coffee cup or close to the body does not cause pain anymore. CHRISTINA BAUM DPT [address], [place], [address], [facility] 04/15/2024 10:20:58 04/24/2024 text/html Diagnosis: Right lateral [...] me at his discretion. Cecil Canseco MD [address] [place] [address] [address], [place], [address], [facility] 04/24/2024 08:40:44
== END 2024-11-07 13:47 | disposition home or self-care (01) ==
LOC: HO.HPS 13:16
PROVIDERS: PCP Internal Medicine; Visit Provider Hospitalist
DX: J41.0 Simple chronic bronchitis (principal); R06.02 Shortness of breath; J38.3 Other diseases of vocal cords; R91.8 Other nonspecific abnormal finding of lung field; G47.33 Obstructive sleep apnea (adult) (pediatric); Z99.89 Dependence on other enabling machines and devices; K22.81 Esophageal polyp
CPT/HCPCS: 99214; G2211

== ENCOUNTER → 2024-11-07 13:16 | Outpatient (BNVA) | payer MEDICARE, OTHER, SELFPAY | PROVIDERS: PCP Internal Medicine; Visit Provider Hospitalist | DX: J41.0 Simple chronic bronchitis (principal); J38.3 Other diseases of vocal cords; G47.33 Obstructive sleep apnea (adult) (pediatric); R06.02 Shortness of breath; R91.8 Other nonspecific abnormal finding of lung field; K22.81 Esophageal polyp; Z99.89 Dependence on other enabling machines and devices | CPT/HCPCS: 99212 ==

== ENCOUNTER 2025-04-10 09:05 | Outpatient (AMB) | payer MEDICARE, OTHER, SELFPAY ==
[2025-04-10 09:09] VITALS: BP 110/54; PULSE 72; O2SAT 97; BMI 23.2
--- NOTE | 2025-04-10 09:09 | A.OFFVIS_ITS ---
Vital Signs 04/10/25 09:09 Height 6 ft 2 in Weight 180 lb 12.465 oz BMI 23.2 BP 110/54 L Blood Pressure Location Lt brachial Position Sitting Pulse 72 Pulse Source Pulse Oximeter Pulse Oximetry (%) 97 Oxygen Delivery Method Room Air Intake Visit Reasons: COPD Insole Presser Required: No Accompanied by: Spouse Allergies moxifloxacin Allergy (Severe, Verified 04/10/25 09:12) Rash HPI Comments Details: The patient is a 64-year-old gentleman with a known history of vocal cord dysfunction and asymmetry followed closely by ENT who apparently was having issues with shortness of breath back in 2018 where he underwent a soft tissue neck CT scan and also CT scan of the chest demonstrating multiple pulmonary nodules subcentimeter in nature largest 1 measuring about 4 mm in size. Subsequently after that in 2019 the patient started having worsening shortness of breath symptoms. This shortness of breath mainly when taking a deep breath in and will be intermittent in nature. He has never used inhalers. Because of the symptoms he had a full cardiac evaluation which was reassuring. More recently the patient was sleeping while using his CPAP and he woke up and could not breathe. Denies any chest pains. The symptoms were concerning enough for him to go to his primary care doctor to further discuss the issues. Therefore the patient was sent for repeat CT scan of the chest which was done at [facility]. I personally reviewed the CT scan of the chest that he had back in 2018 at [facility] demonstrating about 4 pulmonary nodules. The largest 1 4 mm in size. I did then compared to the report that we received from [facility] in appears that he has a new pulmonary nodule in the minor fissure on the right side. Therefore based on that the patient will need a repeat CT scan in June 2023. The pulmonary nodules appear to be noncalcified and appeared to be smooth borders well-circumscribed. No he stop subsolid component noted. In addition to that on the CT scan of the chest from 2019 the patient did have bilateral renal cysts. These renal cysts were not mention on the CT scan from [facility] although is difficult to know of that cuts were not low enough to tap sure that kidneys. If the patient has not had any imaging studies such as ultrasound to further address the renal cyst that should be completed. In the meantime the patient has been following closely with GI. Recently underwent a Wilson study. He has a small hiatal hernia. He is trying to maintain her reflux diet and also I encouraged him to try to sleep elevated as well. The speech therapist given similar recommendations. I do not believe that a short-acting beta agonist as warranted at this time. However, I did provide him with a peak flow meter so he can monitor closely his airway resistance. If the resistance goes down the patient should indeed consider a short-acting beta agonist. Will have him undergo pulmonary function studies as well. I also walking him to bring his CPAP in to the next visit to make sure that is adequately being treated his s leep apnea but not over treating when he is getting distention in the stomach and or irritating his larynx. 10/17/2022 the patient is here for a pulmonary follow-up visit. Since we last spoke he started developing a little laryngitis and then a productive cough. He was expectorating green phlegm although it is clearing up now. However, his cough has persisted. Feels some chest tightness in the middle the chest area. Moderate severity. He did undergo his pulmonary function studies prior to getting sick. We did review the results. It appears that he has a moderate degree of obstruction consistent moderate COPD. The patient is non smoker lifelong. Therefore is not clear why he has such as significant obstruction. He may have some untreated asthma. The patient has used rescue inhalers in the past. Although this point given Symbicort that he can use twice a day. He should rinse his mouth after using it. I am hopeful that with Symbicort his chest tightness has will improve and I am hopeful that with the budesonide component of the Symbicort she will start having improved event in his airways. He has some degree of small airways disease also consistent with likely uncontro lled asthma. He has had allergy testing in the past demonstrating minimal allergies to the environment but does not remember anything drastic. He also brought his CPAP with him. Currently set about CPAP of 6 without a ramp. AHI 0.9 which is excellent. He is using a nasal pillow mask and is working just fine. In regards of his pulmonary nodules his next CT scan will be for June 2023. He did have a CT scan at [facility] in he does have the CD although he does not have a with him. 02/08/2023 the patient is here for pulmonary follow-up visit. Since we last spoke the patient could not get the Symbicort so therefore he ended up getting Advair HFA. He did initially see any significant improvement with the medication. Also he also had an area in the mouth where he was unsure shows thrush. He also developed muscle spasms and cramps. He start the medication. After stopping he noticed that he was helping some. Although hard to know if his enough to warrant the use of the medication. He has been checking his peak flows. I did provide him with a spacer in order to minimize irritation to his mouth in case he needs to go back on the Advair. I also had a sample inhaler with levo a lbuterol that he could use as needed if he notices the onset of the chest tightness and shortness of breath. He will be checking his peak flows twice a day and also as needed. At nighttime he is using the CPAP. CPAP therapy continues to be affecting beneficial. He does use it for more than 4 hours a night. He is going to look to potentially switching his nasal pillows to a cradle. He will talk to a SMS regarding that. Finally. His last CT scan was back in June 2022 demonstrating a new nodule on the right hemithorax. The patient will get a repeat CT scan done June 2023 in 3. The patient prefers [facility]. 07/17/2023 the patient is here for pulmonary follow-up visit. The patient overall has been doing well. He has not had to use it Advair. A as a short-act ing beta agonist study is not required either. Overall he is doing well from a respiratory status. He did have COVID when here COVID his peak flow did drop down to the highs 300. But, his typical peak flow is around 410-450. This is pretty consistent for him. The patient also has been using CPAP. His AHI continues to be below 5 which is reassuring. He does wear nasal pillows and he does have an air leak. He does try needs a chinstrap. I will request 1 from the [employer]. He does use occasional. Also we did follow-up with a CT scan of the chest that he had to follow-up is nodules. They have been stable now for about 4 years which is very reassuring. Upon evaluation in review of the images I did run into a small polypoid lesion on the esophagus. This is maybe a whole then had a CT scan itself. But he does have a GI doctor needs had a barium swallowing a pH probe I do believe that endoscopy may be helpful as well. Therefore I will send a copy to his GI doctor. Otherwise patient is doing well will follow-up in a year's time with pulmonary function studies. 07/22/2024 the patient is here for a pulmonary follow-up visit. The patient overall has been doing well. The Trelegy inhaler has been affecting beneficial. He rarely has to use his rescue inhaler. Although he has 1 available in does use it less than 2 times a week. The patient did have pulmonary function studies at [facility] which I did review and compared to his previous. Appears to show improvement as he only has a mild obstruction at this time consistent with mild COPD. Prior to that he had a moderate obstruction. The patient also went to [place] to be seen by notices because of some other incidental findings. In the process he found out that his daughters carry the alpha-1 antitrypsin gene m utation. Therefore, will go ahead and request a DNIA testing for himself as he may be the carry and also alpha-1 levels to make sure that he is getting adequate protein production. The patient also has been using the CPAP. He does use a nasal mask and is resulting in a dry mouth. The chinstrap was helping for some period time but then it became loose and then in no longer works. I did suggest he switch over to a fullface mask such as the F 40. And I will send a script to the pharmacy. If this is not effective he can always call and we can go back to the nasal mask. He continues to get supplies from his [employer], [employer]. His machine got a back in 2018 and is still working well. 09/24/2024 the patient is here for sick visit. August. He went to see his primary care was given initially a course of Augmentin for bronchitis. He continue coughing. Also chest tightness. The patient went back and was given a course of azithromycin and then prednisone taper. He also had a chest x-ray that was read as no acute disease. The patient is no better he still coughing significantly throughout the day in the night. He has a hard time expectorating anything. He feels tired. Denies any fevers or chills. He has been tested for COVID RSV and also flu which all negative. He continues use the Trelegy inhaler. He does not have a rescue inhaler. On exam he does have some crackles at the left base suggesting bronchopneumonia. Will go ahead and give him a neb treatment to see if this provides some relief. 11/07/2024 the patient is here for a pulmonary follow-up visit. Overall he is feeling better. He did complete the antibiotics and initially felt great but then started developing worsening cough. He was not sure what to do he did call the office and we did recommend he repeat the x-ray. At that point he was in [place] so he could not do so. He went back on this nebulizer and is ultimately back to his baseline. The patient also has been using CPAP. He did start using the new fullface mask, F40. Seems like the leakage issues have subsided significantly although the pressure are not high enough in his AHI is been going up. He does have a simple CPAP ResMed so does not have any APAP features. I did increase the CPAP from 6-8 and is going to monitor the response to therapy monitoring his AHI. And we will continue adjusted accordingly. We can also consider getting him an APAP specially since his machine is older than 6 years old. The patient follow-up in April will have her get an x-ray done to make sure that we see resolution of his pneumonic process. He develops any worsening symptoms prior to that he will call. 04/10/2025 the patient is here for pulmonary follow-up visit. Overall the patient is feeling better. He did get treated for the pneumonia. Ultimately did follow-up in [place] for an evaluation for COPD. Indeed he does have a mild obstruction with small airways disease. But clinically the patient is doing better now. Therefore he stopped the Trelegy and seems to be doing okay without it. He also has been using nasal sprays, ipratropium nasal spray with good effect. If his symptoms do worsen he may need to go back to using the nebulizer his rescue therapy. In the meantime the patient has been using the CPAP. We did switch him from a nasal mask with a fullface mask because of the dry mouth. Although he still complaining of a dry mouth. We did increase the humidity. I do believe the F40 is a good mask for him and he should continue to use it. He is concerned because his apnea score is that gone up. I can see that on the download with an average of 6 events an hour. He has a static CPAP machine that can not automatically adjust. His machine is older than 5 years old and is not working effectively. The patient will benefit from a new replacement APAP. But for now will decrease the pressures again to 6 cm like he had before in the knee can increase it slowly up to a more therapeutic pressure. If he has any difficulties reaching a therapeutic pressure between 6-10 cm we can also request a titration study to better address his PAP requirements. If he does not like the fullface mask he can always switch over to a nasal mask but he should use his chinstrap along with it. [facility] Medical History (Updated 09/24/24 @ 23:03 by Rubio Alexander MD) COPD (chronic obstructive pulmonary disease) FRANCISCO on CPAP Pulmonary nodules Vocal cord dysfunction Dyspnea Social History Patient Tobacco Use Status: Never used Tobacco Review of Systems Const Reports fatigue, Denies fever(s) and Denies night sweats Eyes Denies change in vision ENT Reports dry mouth Card Denies chest pain and Denies dyspnea on exertion Resp Denies chest congestion, Reports cough, Denies dyspnea on exertion and Denies wheezing GI Reports dyspepsia Musc Reports no additional complaints Skin/Breast Denies rash Neuro Reports no additional complaints Endo Reports fatigue and Denies flushing Eloy/Lymph Denies easy bleeding and Denies easy bruising Aller/Immun Denies wheezing Physical Exam Vital Signs: Last Vital Signs Pulse 72 04/10/25 09:09 BP 110/54 L 04/10/25 09:09 Pulse Ox 97 04/10/25 09:09 Oxygen Delivery Method Room Air 04/10/25 09:09 BMI result Body Mass Index 23.2 Const General: comfortable HEENT Head: Yes normocephalic Eyes General: appearance normal, both eyes and all related structures Neck Neck: Yes supple Chest Chest palpation & inspection: normal inspection of the chest Resp Effort & Inspection: normal respiratory effort Auscultation: no crackles and diminished lung sounds Cardio Rate: regular rate Rhythm: regular rhythm Heart sounds: S1 normal heart sound present and S2 normal heart sound present GI Auscultation: normal bowel sounds Skin General skin exam: no rashes or lesions noted Extrem General: Yes no clubbing, cyanosis or edema Assessment & Plan Assessment & Plan (1) COPD (chronic obstructive pulmonary disease): Comment: Moderate-->mild obstruction based on PFTs Code(s): J44.9 - Chronic obstructive pulmonary disease, unspecified Category: Medical Qualifiers: COPD type: chronic bronchitis Chronic bronchitis type: simple Qualified Code(s): J41.0 - Simple chronic bronchitis (2) Dyspnea: Code(s): R06.00 - Dyspnea, unspecified Category: Medical Qualifiers: Dyspnea type: shortness of breath Qualified Code(s): R06.02 - Shortness of breath (3) Vocal cord dysfunction: Comment: asymmetrical vocal cords, speech therapy Code(s): J38.3 - Other diseases of vocal cords Category: Medical (4) Pulmonary nodules: Code(s): R91.8 - Other nonspecific abnormal finding of lung field Category: Medical (5) FRANCISCO on CPAP: Code(s): G47.33 - Obstructive sleep apnea (adult) (pediatric); Z99.89 - Dependence on other enabling machines and devices Category: Medical (6) Esophageal polyp: Code(s): K22.81 - Esophageal polyp Category: Medical Plan stopped Trelegy KERMIT as needed reflux diet HOB elevated while sleeping ipratropium nasal spray as needed adjusted PAP CPAP 6->8>6, F40 mask. increase huminity. Would benefit from an APAP to adjust properly. Could consider titration study. Could go back to the nasal mask, but then will have to deal with leakage via the mouth Had CT chest and PFTs at [facility] F/U 4-6 months Coding Level of Care Code Est Pt Level 4 (20138) Complex EM visit Add On G2211 Diagnoses Simple chronic bronchitis J41.0 COPD type: chronic bronchitis Chronic bronchitis type: simple Shortness of breath R06.02 Dyspnea type: shortness of breath Vocal cord dysfunction J38.3 Pulmonary nodules R91.8 FRANCISCO on CPAP G47.33; Z99.89 Esophageal polyp K22.81 Time Spent (min) 30
--- OUTSIDE RECORDS SUMMARY | 2025-04-10 09:35 | XMS_ITS | Encounter Summary ---
Author Organization [facility] Address [address] [place] [address] Phone Care Team Providers Care Rat Trapper Name Role Phone Oren Estrella MD Primary Care Provider + [phone] Encounter Details Date Type Department Care Team (Late st Contact Info) Description 11/05/2024 Procedure Pass [facility] [address] [place] [address] Social History Tobacco Use Types Packs/Day Years Used Date Smoking Tobacco: Never Assessed Education Answer Date Recorded Are you interested in more education? Not on quinn e 04/12/2023 Are you concerned about learning? Not on file 04/12/2023 No 04/12/2023 No 04/12/2023 Digital Access Answer Date Recorded No 04/12/2023 No 04/12/2023 Reliable internet access at home? Not on file 04/12/2023 Device with a working camera? Not on file Sex and Gender Information Value Date Recorded Sex Assigned at Male 02/28/2023 2:18 PM EDT Legal Sex Male 9:51 PM EDT Gender Identity Male 02/28/2023 2:18 PM EDT Sexual Orientation Straight 02/28/2023 2: 18 PM EDT documented as of this encounter Plan of Treatment Not on file documented as of this encounter Visit Diagnoses Not on filedocumented in this encounter Care Teams Rat Trapper Relationship Specialty Start Date End Date Oren Estrella MD [address] [place] [address] PCP - General Internal Medicine 02/28/23 documented as of this encounter Additional Source Comments The information contained in this document represents components of the legal health record. It is not the complete legal health record.[facility]
--- OUTSIDE RECORDS SUMMARY | 2025-04-10 09:35 | XMS_ITS | Clinical Summary ---
Author Organization [facility] Address [address] [place] [address] Phone Care Team Providers Care Field Service Engineer Name Role Phone Oren Estrella MD Primary Care Provider + [phone] Allergies Active Allergy Reactions Criticality Noted Date Comments Moxifloxacin Rash Medium 02/12/2024 Medications sildenafiL (VIAGRA) 50 mg tablet Take 50 mg by mouth daily as needed for erectile dysfunction. Active TRELEGY ELLIPTA 200-62.5-25 mcg inhaler 04/02/2024 Active ipratropium (ATROVENT) 21 mcg (0.03 %) nasal spray 2 sprays by Nasal route every 12 (twelve) hours. 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 Given that he notes only modest change in the frequency of his episodes since starting the Trelegy, and he has no respiratory limitation on exertion, I suggested he discontinue the Trelegy for the time being. I encouraged him to continue maintaining his vaccinations up-to-date, including for pneumococcus, flu, and RSV. He was in agreement with this plan. Dissection of abdominal aorta 09/19/2022 Overview (12/09/2024): Stable and being followed by a vascular surgeon, Dr Andrew Stephens, [facility]. Pituitary adenoma 09/13/2022 Hemangioma of skin and subcutaneous tissue 10/19 Other seborrheic keratosis 10/19/2020 Neoplasm of uncertain behavior of skin Actinic keratosis 05/29/2014 Encounters Date Type Department Care Team Description 01/14/2025 Refill [facility] [place] [id number] Luis Enrique Diez MD, MPH Medication Refill from Last 3 Months Social History Tobacco Use Types Packs/Day Years Used Date Smoking Tobacco: Never Smokeless Tobacco: Never Tobacco Cessation:Counseling Given: Not Answered Education Answer Date Recorded Are you interested [...] Orientation Straight 02/28/2023 2: 18 PM EDT Last Filed Vital Signs Vital Sign Reading Time Taken Comments Blood Pressure 129/66 12/09/2024 10:05 AM EDT Pulse 67 12/09/2024 10:05 AM EDT Temperature 35.9 C (96.6 F) 12/09/2024 10:05 AM EDT Respiratory Rate 18 12/09/2024 10:05 AM EDT Oxygen Saturation 98% 12/09/2024 10:05 AM EDT Inhaled Oxygen Concentration - - Weight 81.2 kg (179 lb) 12/09/2024 10:05 AM EDT Height 188 cm (6' 2 ) 12/09/2024 10:05 AM EDT Body Mass Index 22.98 12/09/2024 10:05 AM EDT Plan of Treatment Health Maintenance Due Date Last Done Comments Adult Td,Tdap Booster 1960 LIPID PANEL 1960 HEPATITIS C SCREENING 02/18/1976 SMOKING STATUS SCREENING (Once After 26 Yrs) 02/18/1984 COLOGUARD 2003 COLONOSCOPY 2003 COLORECTAL CANCER SCREENING 2003 FIT TEST 2003 FOBT 2003 SIGMOIDOSCOPY 2003 VIRTUAL COLONOSCOPY 2003 ZOSTER VACCINES (2 of 2) 09/06/2018 07/12/2018 INFLUENZA VACCINE (#1) 2025 , 05/01/2023, 04/14/2022, Additional history exists COVID-19 VACCINE ( season) 2025 05/10/2024, 05/09/2023, 03/09/2023, Additional history exists DEPRESSION SCREENING 12/09/2025 12/09/2024 PNEUMOCOCCAL VACCINES (50+ years) Completed 05/01/2023 RSV VACCINE Completed 07/17/2023 HEPATITIS A VACCINES Aged Out No long er eligible based on patient's age to complete this topic HIB VACCINES Aged Out No longer eligi ble based on patient's age to complete this topic MENINGOCOCCAL VACCINES (ACWY) Aged Out No longer eligible based on patient's age to complete this topic MENINGOCOCCAL VACCINES (B) Aged Out N o longer eligible based on patient's age to complete this topic Medical Devices Not on file Insurance MEDICARE PART A & B [facility] FOR LIFE MEDICARE SUPPLEMENT MEDICARE PART A & B [facility] FOR LIFE MEDICARE SUPPLEMENT MEDICARE PART A & B [facility] FOR LIFE MEDICARE SUPPLEMENT Member Subscriber Plan / Payer (Ef fective 2022-) Name:Alec Cain Relation to Subscriber:Self Name:Alec Cain Payer ID:[id number] (NAIC) Group ID:Not on file Type:[facility] Address: [place] [phone] MEDICARE PART A & B [facility] LIFE MEDICARE SUPPLEMENT Member Subscriber Plan / Payer ( fective 2022-) Name:Alec Cain Relation to Subscriber:Self Name:Alec Cain Payer ID:[id number] (NAIC) Group ID:Not on file Type:[facility] Address: [place] [phone] MEDICARE PART A & B FOR LIFE MEDICARE SUPPLEMENT MEDICARE PART A & B FOR LIFE MEDICARE SUPPLEMENT Care Teams Field Service Engineer Relationship Specialty Start Date End Date Oren Estrella MD [address] [place] [address] PCP - General Internal Medicine 02/28/23 Additional Source Comments The information contained in this document represents components of the legal health record. It is not the complete legal health record.[facility]
--- OUTSIDE RECORDS SUMMARY | 2025-04-10 09:35 | XMS_ITS | Continuity of Care Document ---
Author Organization [facility] [address] [facility] [address] [place] [address] Phone [phone] Care Team Providers Care Glass Scullion Name Role Phone Oren Estrella M.D. Care Team Information Recei salo [phone] Problems Active Problems Provider Date Pituitary adenoma Andrew Ricketts M.D. Onset: 09/13/2022 Social History Type Date Description Comments Sex Male Sex Unknown Lives With Spouse ETOH Use Occasionally consumes alcoho l Tobacco Use Start: Unknown Patient has never smoked Allergies and adverse reactions Active Allergies Criticality Reaction Severity Comments Date Moxifloxacin Unable to assess criticality Hives 09/13/2022 Medications Active Medications SIG Qnty Indications Ordering Provider Date Sildenafil Qebpafs241pg Tablets Oren Estrella M.D. Vital Signs Date [...] Description No Information Available Referrals Refer to Reason for Referral Status Appt Temo [place] Calderon, M.D. Created [address] [place] [address] Drive [address] [place] [address] [phone]
--- OUTSIDE RECORDS SUMMARY | 2025-04-10 09:35 | XMS_ITS | Clinical Summary ---
Author Organization [facility] Address [address] [place] [address] Care Team Providers Care [employer] Sales Representative Name Role Phone Unavailable Primary Care Provider Unavailabl e Allergies Active Allergy Reactions Criticality Noted Date Comments Moxifloxacin Hcl Dermatitis High 10/30/2020 Immunizations Immunization Administration Dates Next Due Covid-19, Pfizer, mRNA, Becker valent, PF 30 mcg/0.3 mL dose (for [...] Zoster Vaccines (2 of 2) 09/06/2018 07/12/2018 Alcohol/Substance Use Screening 08/07/2024 Depression Screening and Follow-Up 08/07/2024 Health Care Proxy Review 08/07/2024 Social Drivers of Health Annual Screening 08/07/2024 COVID-19 Vaccine (3 - 2024-2 6 season) 2025 11/27/2020, 10/30/2020 Influenza Vaccine (#1) 2025 05/07/2018 RSV Vaccine (60+ years old a nd patients) (1 - 1-dose 75+ series) 2033 Hepatitis B Vaccines Aged Out No long er eligible based on patient's age to complete this topic Insurance on file [facility]
--- OUTSIDE RECORDS SUMMARY | 2025-04-10 09:35 | XMS_ITS ---
Author Name [facility] Organization Unknown History of Medication Use Medication Directions Dispensed Refills Start Date End Date Stat us codeine 10 mg-guaifenesin 100 mg/5 mL oral liquid GIVE 5-10 ML BY MOUTH EVERY 6 HOURS NEEDED active doxycycline monohydrate 100 mg tablet TAKE 1 TABLET BY MOUTH TWICE A DAY active Allergies Allergen Reaction Severity Comment Documented Date Source Statu s MOXIFLOXACIN ENS_AONECT Problems Problem Status Onset Date Problem Type Date of Resoluti on Source Osteoarthritis of left knee joint active 2023-12-05 ProblemAct ENS_AONECT Encounters Encounter Type Encounter Reason Primary Diagnosis Location Date Ambulatory [facility] 12/13/2023 Ambulatory [facility] 12/06/2023 Ambulatory [facility] 12/05/2023 Ambulatory [facility] 11/18/2023 Ambulatory [facility] 11/18/2023 Ambulatory [facility] 11/18/2023
== END 2025-04-10 09:50 | disposition home or self-care (01) ==
LOC: HO.HPS 09:06
PROVIDERS: PCP Internal Medicine; Visit Provider Hospitalist
DX: J41.0 Simple chronic bronchitis (principal); R06.02 Shortness of breath; J38.3 Other diseases of vocal cords; R91.8 Other nonspecific abnormal finding of lung field; G47.33 Obstructive sleep apnea (adult) (pediatric); Z99.89 Dependence on other enabling machines and devices; K22.81 Esophageal polyp
CPT/HCPCS: 99214; G2211

== ENCOUNTER → 2025-04-10 09:05 | Outpatient (BNVA) | payer MEDICARE, OTHER, SELFPAY | PROVIDERS: PCP Internal Medicine; Visit Provider Hospitalist | DX: J41.0 Simple chronic bronchitis (principal); R06.02 Shortness of breath; J38.3 Other diseases of vocal cords; R91.8 Other nonspecific abnormal finding of lung field; G47.33 Obstructive sleep apnea (adult) (pediatric); Z99.89 Dependence on other enabling machines and devices; K22.81 Esophageal polyp | CPT/HCPCS: 99212 ==